=== PATIENT | male | born 1945 | race Caucasian/White ===

== ENCOUNTER 2017-03-22 08:29 | Observation (INO) | payer MEDICARE, OTHER ==
[~2017-03-22] VITALS: Ht 162.6 cm; Wt 93.1 kg
[~2017-03-22 08:29] MED LIST: ALLOPURINOL300 MG PO; ASPIRIN 81M81 MG/TA2 PO; CLONAZEPAM1 MG PO; CRESTOR5 MG PO; HUMALOG100 U/ML SC; LANTUS SOLOS100 U/ML SL; LISINOPRIL10 MG PO; METFORMIN ER500 MG PO; METOPROLOL50 MG PO; MICARDIS80 MG PO; NEURONTIN300 MG/CAP PO; PLAVIX 75MG TAB75 MG PO; SIMVASTATIN40 MG PO
[2017-03-22 08:59] VITALS: BP 136/61; PULSE 57; TEMP 97.7
[2017-03-22 09:23] LABS: HEMATOCRIT 32.2 % (42.0-52.0); MEAN CELL VOLUME 97 fl (80.0-100.0); MEAN CORPUSCULAR HEMOGLOBIN 30 pg (27.0-31.0); MEAN CORPUSCULAR HGB CONC 31 g/dl (33.0-37.0); MEAN PLATELET VOLUME 12.3 fl (7.4-10.4); PLATELET COUNT 60 K/mm3 (130-400); RED BLOOD COUNT 3.31 M/mm3 (4.20-5.60); REDCELL DISTRIBUTION WIDTH-CV 13.7 % (11.5-14.5); WHITE BLOOD COUNT 5.2 K/mm3 (4.8-10.8)
[2017-03-22 09:34] LABS: INR 1.2 (0.8-3.0); PROTHROMBIN TIME 13.1 SECONDS (9.7-12.8)
[2017-03-22] MEDS ORDERED: FLOMAX 0.40.4 MG/CAP PO (09:34)
[2017-03-22] MEDS ORDERED: IMDUR 60MG60 MG/TAB PO (09:35)
[2017-03-22] MEDS ORDERED: TOPROL XL 50MG50 MG PO (09:36)
[2017-03-22] MEDS ORDERED: PRINIVIL10 MG PO (09:36)
[2017-03-22] MEDS ORDERED: SYNTHROID 0.0.025 MG PO (09:38)
[2017-03-22] MEDS ORDERED: NATURAL MAGNES200 MG PO (09:39)
[2017-03-22] MEDS ORDERED: IRON 27 MG PO (09:39)
[2017-03-22] MEDS ORDERED: EPA FISH OIL1 SGL PO (09:40)
[2017-03-22] MEDS ORDERED: VITAMIN C500 MG PO (09:40)
[2017-03-22] MEDS ORDERED: ZOCOR 40MG40 MG PO (09:41)
[2017-03-22 09:45] LABS: CALCIUM 8.7 mg/dL (8.4-10.2); CREATININE, serum 2.04 mg/dL (0.66-1.25)
[2017-03-22 09:57] LABS: POTASSIUM 5.9 mmol/L (3.4-5.0)
[2017-03-22 12:15] VITALS: BP 120/57; PULSE 50; TEMP 98.7
[2017-03-22 14:37] LABS: POTASSIUM 5.3 mmol/L (3.4-5.0)
[2017-03-22 16:04] LABS: ARTERIAL BLD GAS O2 SATURATION 92.4 % (92-100); ARTERIAL BLD GAS TCO2 CT 23.3; ARTERIAL BLOOD GAS BASE EXCESS -3.3 (-2-2); ARTERIAL BLOOD GAS PHT 7.35 C (7.35-7.45); ARTERIAL BLOOD GAS PO2 68.8 mmHg (80-100); ARTERIAL BLOOD GAS PO2T 68.8 (80-100); ARTERIAL BLOOD GAS pH 7.35 (7.35-7.45); OXYHEMOGLOBIN 91.8 %
[2017-03-22 16:05] LABS: ATS? YES
[2017-03-22 19:03] LABS: CALCIUM 8.9 mg/dL (8.4-10.2); CREATININE, serum 2.06 mg/dL (0.66-1.25); MAGNESIUM 1.5 mg/dL (1.6-2.3)
[2017-03-22 20:38] VITALS: BP 173/58; PULSE 58; TEMP 98
[2017-03-22 22:50] VITALS: BP 148/60; PULSE 57; TEMP 97.8
[2017-03-22 23:05] LABS: PH 5 (5-8); SQUAMOUS EPITHELIAL 0-2 /hpf; URINE APPEARANCE Clear; URINE BACTERIA None Seen /hpf; URINE BILIRUBIN Negative (NEGATIVE); URINE BLOOD 1+ (NEGATIVE); URINE COLOR Yellow; URINE GLUCOSE 1+ (NEGATIVE); URINE KETONE Negative (NEGATIVE); URINE RBC 0-2 /hpf; URINE UROBILINOGEN Negative (NEGATIVE); URINE WBC 0-2 /hpf
[2017-03-22 23:32] LABS: URINE PROTEIN:CREAT RATIO 5.1 (0.00-0.14)
[2017-03-22 23:48] LABS: ALBUMIN 3.1 gm/dL (3.5-5.0); CALCIUM 8.3 mg/dL (8.4-10.2); CREATININE, serum 1.87 mg/dL (0.66-1.25); PHOSPHOROUS 4.8 mg/dL (2.5-4.5)
[2017-03-23 04:09] VITALS: BP 115/56; PULSE 56; TEMP 97.8
[2017-03-23 08:06] VITALS: BP 158/55; PULSE 66; TEMP 98.3
[2017-03-23 08:08] LABS: BASO % 0.2 % (0.0-2.0); EOS # 0.2 (0.0-0.7); EOS % 2.8 % (0-4.0); GRAN # 3.6 (1.4-6.5); GRAN % 67.8 % (42.2-75.2); LYMPH # 1.3 (1.2-3.4); LYMPH % 24.4 % (20.0-51.0); MEAN CELL VOLUME 99 fl (80.0-100.0); MEAN CORPUSCULAR HGB CONC 30 g/dl (33.0-37.0); MEAN PLATELET VOLUME 13.3 fl (7.4-10.4); MONO # 0.2 (0.1-0.6); MONO % 4.2 % (1.7-9.3); PLATELET COUNT 59 K/mm3 (130-400); RED BLOOD COUNT 3.06 M/mm3 (4.20-5.60); REDCELL DISTRIBUTION WIDTH-CV 14.1 % (11.5-14.5); WHITE BLOOD COUNT 5.3 K/mm3 (4.8-10.8)
[2017-03-23 08:10] LABS: HEMATOCRIT 30.3 % (42.0-52.0); HEMOGLOBIN 9.2 g/dl (13.5-18.0); MEAN CORPUSCULAR HEMOGLOBIN 30 pg (27.0-31.0)
[2017-03-23 08:21] LABS: CALCIUM 8.4 mg/dL (8.4-10.2); CREATININE, serum 1.92 mg/dL (0.66-1.25); MAGNESIUM 1.5 mg/dL (1.6-2.3); POTASSIUM 5.5 mmol/L (3.4-5.0)
[2017-03-23 11:50] VITALS: BP 167/63; PULSE 60; TEMP 98.4
[2017-03-23] MEDS ORDERED: IMDUR 30MG30 MG/TAB PO (15:38)
[2017-03-23] MEDS ORDERED: KAYEXALATE15 GM/60 M PO (15:40)
[2017-03-23 16:09] VITALS: BP 124/60; PULSE 57; TEMP 97.4
[2017-03-23 18:11] LABS: HOURS RANDOM Hr (()); VOLUME RANDOM mL (())
[2017-03-26 13:36] LABS: ERYTHROPOIETIN 21.4 mIU/mL (())
[2017-03-26 15:06] LABS: ALBUMIN PERCENTAGE 51.3 % (48.7-61.8); ALPHA 1 FRACTION 0.3 g/dL (0.3-0.5); ALPHA 1 PERCENTAGE 4.8 % (3.4-8.3); ALPHA 2 FRACTION 0.6 g/dL (0.6-1.2); ALPHA 2 PERCENTAGE 10.6 % (8.4-17.5); BETA 1 FRACTION 0.4 g/dL (0.4-0.6); BETA 1 PERCENTAGE 7.1 % (5.4-8.9); BETA 2 FRACTION 0.5 g/dL (0.2-0.5); BETA 2 PERCENTAGE 9.1 % (3.8-7.7); GAMMA PERCENTAGE 17.1 % (8.1-23.0); SERUM PROTEIN TOTAL 5.9 g/dL (6.0-7.6)
[2017-03-26 15:12] LABS: URINE ALPHA 1 % 2.4 % (()); URINE ALPHA 2 % 2.9 % (()); URINE BETA % 9.7 % (())
[2017-03-26 16:44] LABS: KAPPA FREE LIGHT CHAIN-SERUM 6.87 mg/dL (()); KAPPA LAMBDA RATIO 1.19 (())
== END 2017-03-23 17:53 | disposition home or self-care (01) ==
LOC: EUO 08:29 → COL.CAR 08:40 → EUO 08:40 → MEDICAL 11:13
PROVIDERS: Internal Medicine Cardiovascular Disease; Internal Medicine Nephrology
DX: I25.10 Atherosclerotic heart disease of native coronary artery without angina pectoris (principal); I12.9 Hypertensive chronic kidney disease with stage 1 through stage 4 chronic kidney disease, or unspecified chronic kidney disease; E11.22 Type 2 diabetes mellitus with diabetic chronic kidney disease; N18.9 Chronic kidney disease, unspecified; E87.5 Hyperkalemia; E78.5 Hyperlipidemia, unspecified; E03.9 Hypothyroidism, unspecified; D69.6 Thrombocytopenia, unspecified; R91.1 Solitary pulmonary nodule; E11.40 Type 2 diabetes mellitus with diabetic neuropathy, unspecified; K76.0 Fatty (change of) liver, not elsewhere classified; F17.220 Nicotine dependence, chewing tobacco, uncomplicated; E83.42 Hypomagnesemia; K52.9 Noninfective gastroenteritis and colitis, unspecified; I08.3 Combined rheumatic disorders of mitral, aortic and tricuspid valves; G47.33 Obstructive sleep apnea (adult) (pediatric); R56.9 Unspecified convulsions; Z90.49 Acquired absence of other specified parts of digestive tract; Z95.1 Presence of aortocoronary bypass graft; Z79.4 Long term (current) use of insulin; Z85.038 Personal history of other malignant neoplasm of large intestine; Z86.73 Personal history of transient ischemic attack (TIA), and cerebral infarction without residual deficits; Z82.49 Family history of ischemic heart disease and other diseases of the circulatory system
CPT/HCPCS: 99204; G0378; G0379; J0610; J1815; J1940; J3475; J7050

== ENCOUNTER 2017-03-29 06:03 | Day surgery (SDC) | payer MEDICARE ==
[~2017-03-29] VITALS: Ht 160 cm; Wt 93.6 kg
[2017-03-29] VITALS (15 sets, daily range): BP systolic 129–171; BP diastolic 48–85; PULSE 46–64; TEMP 97.3–98.8
[~2017-03-29 06:03] MED LIST changes: -ALLOPURINOL300 MG PO; +EPA FISH OIL1 SGL PO; +FERROUSGLUC256MG PO; +FLOMAX 0.40.4 MG/CAP PO; -HUMALOG100 U/ML SC; +HUMALOG100 U/ML SQ; +IMDUR 30MG30 MG/TAB PO; +IMDUR 60MG60 MG/TAB PO; +KAYEXALATE15 GM/60 M PO; -LANTUS SOLOS100 U/ML SL; +LANTUS SOLOS100 U/ML SQ; +NATURAL MAGNES200 MG PO; +PRINIVIL10 MG PO; -SIMVASTATIN40 MG PO; +SYNTHROID 0.0.025 MG PO; +TOPROL XL 50MG50 MG PO; +VITAMIN C500 MG PO; +ZOCOR 40MG40 MG PO; +ZYLOPRIM 300MG300 MG PO
[2017-03-29 06:52] LABS: MEAN CELL VOLUME 97 fl (80.0-100.0); MEAN CORPUSCULAR HGB CONC 32 g/dl (33.0-37.0); MEAN PLATELET VOLUME 12.7 fl (7.4-10.4); PLATELET COUNT 62 K/mm3 (130-400); RED BLOOD COUNT 3.34 M/mm3 (4.20-5.60); REDCELL DISTRIBUTION WIDTH-CV 13.9 % (11.5-14.5); WHITE BLOOD COUNT 5.9 K/mm3 (4.8-10.8)
[2017-03-29 06:53] LABS: HEMATOCRIT 32.3 % (42.0-52.0); HEMOGLOBIN 10.3 g/dl (13.5-18.0); MEAN CORPUSCULAR HEMOGLOBIN 31 pg (27.0-31.0)
[2017-03-29 07:02] LABS: CALCIUM 8.4 mg/dL (8.4-10.2); CREATININE, serum 2.31 mg/dL (0.66-1.25); POTASSIUM 5.1 mmol/L (3.4-5.0)
[2017-03-29 07:05] LABS: INR 1.2 (0.8-3.0); PROTHROMBIN TIME 12.8 SECONDS (9.7-12.8)
[2017-03-29] MEDS ORDERED: SYNTHROID 0.0.025 MG PO (08:43)
[2017-03-29] MEDS ORDERED: IMDUR 30MG30 MG/TAB PO (08:43)
[2017-03-29] MEDS ORDERED: TOPROL XL 50MG50 MG PO (08:45)
[2017-03-29] MEDS ORDERED: KAYEXALATE15 GM/60 M PO (08:50)
[2017-03-29] MEDS ORDERED: FLOMAX 0.40.4 MG/CAP PO (08:50)
[2017-03-30 04:28] VITALS: BP 146/60; PULSE 55; TEMP 98.4
[2017-03-30 05:34] VITALS: BP 146/60; PULSE 55; TEMP 98.4
[2017-03-30 07:18] VITALS: BP 137/45; PULSE 53; TEMP 97.5
[2017-03-30 08:52] LABS: BASO % 0.4 % (0.0-2.0); EOS # 0.2 (0.0-0.7); EOS % 3.3 % (0-4.0); GRAN # 3.7 (1.4-6.5); GRAN % 66.6 % (42.2-75.2); LYMPH # 1.3 (1.2-3.4); LYMPH % 24.4 % (20.0-51.0); MEAN CELL VOLUME 98 fl (80.0-100.0); MEAN CORPUSCULAR HGB CONC 31 g/dl (33.0-37.0); MEAN PLATELET VOLUME 13.4 fl (7.4-10.4); MONO # 0.3 (0.1-0.6); MONO % 4.9 % (1.7-9.3); PLATELET COUNT 57 K/mm3 (130-400); RED BLOOD COUNT 3.35 M/mm3 (4.20-5.60); REDCELL DISTRIBUTION WIDTH-CV 13.8 % (11.5-14.5); WHITE BLOOD COUNT 5.5 K/mm3 (4.8-10.8)
[2017-03-30 09:00] LABS: HEMATOCRIT 32.9 % (42.0-52.0); HEMOGLOBIN 10.2 g/dl (13.5-18.0); MEAN CORPUSCULAR HEMOGLOBIN 30 pg (27.0-31.0)
[2017-03-30 09:05] VITALS: BP 137/45; PULSE 53; TEMP 97.5
[2017-03-30 09:13] LABS: CALCIUM 8.3 mg/dL (8.4-10.2); CREATININE, serum 2.05 mg/dL (0.66-1.25); MAGNESIUM 1.6 mg/dL (1.6-2.3); POTASSIUM 4.9 mmol/L (3.4-5.0)
[2017-03-30] MEDS ORDERED: LANTUS SOLOS100 U/ML SQ (09:50)
[2017-03-30 10:48] VITALS: BP 154/57; PULSE 55; TEMP 98.1
[2017-03-30] MEDS ORDERED: NORVASC2.5 MG PO (11:47)
[2017-03-30] MEDS ORDERED: NITROSTAT0.4 MG/TAB SL (11:48)
[2017-03-30 12:23] VITALS: BP 154/57; PULSE 55; TEMP 98.1
== END 2017-03-30 12:25 | disposition home or self-care (01) ==
LOC: COL.CAR 06:03 → MEDICAL 13:14 → COL.CAR 03-30 12:25
PROVIDERS: Internal Medicine Cardiovascular Disease
DX: E87.5 Hyperkalemia (principal); I25.110 Atherosclerotic heart disease of native coronary artery with unstable angina pectoris; E78.5 Hyperlipidemia, unspecified; I12.9 Hypertensive chronic kidney disease with stage 1 through stage 4 chronic kidney disease, or unspecified chronic kidney disease; N18.9 Chronic kidney disease, unspecified; E11.22 Type 2 diabetes mellitus with diabetic chronic kidney disease; E03.9 Hypothyroidism, unspecified; D69.6 Thrombocytopenia, unspecified; E11.40 Type 2 diabetes mellitus with diabetic neuropathy, unspecified; I10 Essential (primary) hypertension; G47.33 Obstructive sleep apnea (adult) (pediatric); Z79.4 Long term (current) use of insulin; Z95.1 Presence of aortocoronary bypass graft; R56.9 Unspecified convulsions; Z87.891 Personal history of nicotine dependence; Z85.038 Personal history of other malignant neoplasm of large intestine; Z86.73 Personal history of transient ischemic attack (TIA), and cerebral infarction without residual deficits; Z82.49 Family history of ischemic heart disease and other diseases of the circulatory system
CPT/HCPCS: OP; 99203; 99231-AI; C1760; C1769; C1894; J1815; J2250; J3010; J7030; Q9967

== ENCOUNTER → 2017-04-19 | Outpatient (CLI) | payer MEDICARE ==
[~2017-04-19] MED LIST changes: +NITROSTAT0.4 MG/TAB SL; +NORVASC2.5 MG PO
== END ==
LOC: COL.PUL 12:29
DX: R06.02 Shortness of breath (principal); Z87.891 Personal history of nicotine dependence

== ENCOUNTER 2017-05-11 15:17 | Inpatient (IN) | payer MEDICARE ==
[~2017-05-11] VITALS: Ht 160 cm; Wt 89.9 kg
[2017-05-11] VITALS (297 sets, daily range): BP systolic 131–162; BP diastolic 81–92; PULSE 76–93; TEMP 98.3–98.7; O2SAT 85–100
[2017-05-11] MEDS ORDERED: LASIX 40MG TABL40 MG PO (15:42)
[2017-05-11 15:53] LABS: BASO % 0.3 % (0.0-2.0); EOS # 0.2 (0.0-0.7); GRAN # 4.1 (1.4-6.5); GRAN % 67.7 % (42.2-75.2); LYMPH # 1.4 (1.2-3.4); MEAN CELL VOLUME 93 fl (80.0-100.0); MEAN CORPUSCULAR HGB CONC 32 g/dl (33.0-37.0); MEAN PLATELET VOLUME 12.5 fl (7.4-10.4); MONO # 0.4 (0.1-0.6); MONO % 5.8 % (1.7-9.3); PLATELET COUNT 59 K/mm3 (130-400); RED BLOOD COUNT 3.35 M/mm3 (4.20-5.60)
[2017-05-11 15:54] LABS: HEMATOCRIT 31.2 % (42.0-52.0); HEMOGLOBIN 10.1 g/dl (13.5-18.0); MEAN CORPUSCULAR HEMOGLOBIN 30 pg (27.0-31.0)
[2017-05-11 15:55] LABS: INR 1.2 (0.8-3.0); PROTHROMBIN TIME 12.8 SECONDS (9.7-12.8)
[2017-05-11 15:57] LABS: PARTIAL THROMBOPLASTIN TIME 30.5 SECONDS (26.0-37.0)
[2017-05-11 16:05] LABS: ALBUMIN 3.6 gm/dL (3.5-5.0); BILIRUBIN,TOTAL 0.7 mg/dL (0.0-1.0); CALCIUM 8.7 mg/dL (8.4-10.2); CREATININE, serum 2.55 mg/dL (0.66-1.25); POTASSIUM 4.4 mmol/L (3.4-5.0); TOTAL PROTEIN 6.8 gm/dL (6.4-8.2)
[2017-05-11 16:19] LABS: TROPONIN-I 0.298 ng/mL (0.000-0.034)
[2017-05-11] MEDS ORDERED: NORVASC2.5 MG PO (18:01)
[2017-05-11] MEDS ORDERED: LANTUS100 U/ML SQ (18:02)
[2017-05-12] VITALS (586 sets, daily range): BP systolic 106–148; BP diastolic 35–78; PULSE 67–81; TEMP 97.6–98.1; O2SAT 89–100
[2017-05-12 04:15] LABS: BASO % 0.4 % (0.0-2.0); EOS # 0.2 (0.0-0.7); EOS % 3.7 % (0-4.0); GRAN # 2.7 (1.4-6.5); GRAN % 58.7 % (42.2-75.2); LYMPH # 1.4 (1.2-3.4); LYMPH % 29.9 % (20.0-51.0); MEAN CELL VOLUME 95 fl (80.0-100.0); MEAN CORPUSCULAR HGB CONC 32 g/dl (33.0-37.0); MONO # 0.3 (0.1-0.6); MONO % 6.9 % (1.7-9.3); PLATELET COUNT 51 K/mm3 (130-400); RED BLOOD COUNT 3.14 M/mm3 (4.20-5.60); WHITE BLOOD COUNT 4.7 K/mm3 (4.8-10.8)
[2017-05-12 04:16] LABS: HEMATOCRIT 29.7 % (42.0-52.0); HEMOGLOBIN 9.5 g/dl (13.5-18.0); MEAN CORPUSCULAR HEMOGLOBIN 30 pg (27.0-31.0)
[2017-05-12 04:27] LABS: ALBUMIN 3.1 gm/dL (3.5-5.0); BILIRUBIN,TOTAL 0.7 mg/dL (0.0-1.0); CALCIUM 8.3 mg/dL (8.4-10.2); CREATININE, serum 2.38 mg/dL (0.66-1.25); POTASSIUM 4.7 mmol/L (3.4-5.0)
[2017-05-12 04:42] LABS: TROPONIN-I 3 HR POST INITIAL 0.479 ng/mL (0.000-0.034)
[2017-05-12 07:53] LABS: TROPONIN-I 6 HR POST INITIAL 0.442 ng/mL (0.000-0.034)
[2017-05-12 10:43] LABS: CHOLESTEROL RISK RATIO 4.2
[2017-05-13 00:02] VITALS: BP 110/54; PULSE 63; TEMP 98.8
[2017-05-13 04:11] VITALS: BP 128/56; PULSE 86; TEMP 98.2
[2017-05-13 08:25] VITALS: BP 120/68; PULSE 101; TEMP 98
[2017-05-13 11:38] LABS: MEAN CELL VOLUME 94 fl (80.0-100.0); MEAN CORPUSCULAR HGB CONC 32 g/dl (33.0-37.0); MEAN PLATELET VOLUME 12.9 fl (7.4-10.4); PLATELET COUNT 54 K/mm3 (130-400); RED BLOOD COUNT 3.09 M/mm3 (4.20-5.60); WHITE BLOOD COUNT 4.2 K/mm3 (4.8-10.8)
[2017-05-13 11:39] VITALS: BP 127/57; PULSE 58; TEMP 97.6
[2017-05-13 11:40] LABS: HEMATOCRIT 29.1 % (42.0-52.0); HEMOGLOBIN 9.3 g/dl (13.5-18.0); MEAN CORPUSCULAR HEMOGLOBIN 30 pg (27.0-31.0)
[2017-05-13 11:59] LABS: CALCIUM 8.3 mg/dL (8.4-10.2); CREATININE, serum 2.45 mg/dL (0.66-1.25); POTASSIUM 5.7 mmol/L (3.4-5.0)
[2017-05-13] MEDS ORDERED: IMDUR 30MG30 MG/TAB PO (15:31)
[2017-05-13] MEDS ORDERED: TOPROL XL 50MG50 MG PO (15:32)
[2017-05-13] MEDS ORDERED: NORVASC 5MG5 MG/TAB PO (15:32)
[2017-05-13] MEDS ORDERED: NEURONTIN100 MG/CAP PO (15:33)
[2017-05-13] MEDS ORDERED: ZYLOPRIM 100MG100 MG PO (15:34)
== END 2017-05-13 16:18 | disposition home or self-care (01) | DRG 281 ==
LOC: COL.ER 15:17 → ICU 16:33 → MEDICAL 05-12 14:50 → ICU 05-12 14:50 → MEDICAL 05-13 16:18
PROVIDERS: Emergency Medicine; Family Medicine; Internal Medicine
DX: I21.A1 Myocardial infarction type 2 (principal); N18.4 Chronic kidney disease, stage 4 (severe); D61.818 Other pancytopenia; I12.9 Hypertensive chronic kidney disease with stage 1 through stage 4 chronic kidney disease, or unspecified chronic kidney disease; G47.33 Obstructive sleep apnea (adult) (pediatric); E11.22 Type 2 diabetes mellitus with diabetic chronic kidney disease; E03.9 Hypothyroidism, unspecified; D63.1 Anemia in chronic kidney disease; R00.2 Palpitations; Z87.891 Personal history of nicotine dependence; E87.5 Hyperkalemia; K74.60 Unspecified cirrhosis of liver; Z79.4 Long term (current) use of insulin; Z85.038 Personal history of other malignant neoplasm of large intestine
CPT/HCPCS: 99223-AI; 99233-AI; 99239; J1650; J1815

== ENCOUNTER → 2017-05-15 | Outpatient (CLI) | payer MEDICARE ==
[~2017-05-15] MED LIST changes: +LANTUS100 U/ML SQ; +LASIX 40MG TABL40 MG PO; +NEURONTIN100 MG/CAP PO; +NORVASC 5MG5 MG/TAB PO; +ZYLOPRIM 100MG100 MG PO
[2017-05-15 13:11] LABS: CALCIUM 8.7 mg/dL (8.4-10.2); CREATININE, serum 2.35 mg/dL (0.66-1.25); POTASSIUM 4.6 mmol/L (3.4-5.0)
== END ==
LOC: COL.LAB 12:48
PROVIDERS: Internal Medicine
DX: E87.5 Hyperkalemia (principal)

== ENCOUNTER → 2017-06-05 | Outpatient (CLI) | payer MEDICARE ==
[2017-06-05] VITALS (11 sets, daily range): BP systolic 132–160; BP diastolic 67–85; PULSE 54–64
[~2017-06-05] VITALS: Ht 160 cm; Wt 94.3 kg
[2017-06-05 12:22] LABS: INR 1.2 (0.8-3.0); PROTHROMBIN TIME 13.4 SECONDS (9.7-12.8)
== END ==
LOC: COL.RAD 11:32
PROVIDERS: Physician Assistant
DX: K74.60 Unspecified cirrhosis of liver (principal); N18.3 Chronic kidney disease, stage 3 (moderate); D69.6 Thrombocytopenia, unspecified
CPT/HCPCS: 25757

== ENCOUNTER → 2017-07-13 | Outpatient (CLI) | payer MEDICARE | LOC: COL.LAB 14:37 | DX: R05 Cough (principal); R06.02 Shortness of breath; Z95.1 Presence of aortocoronary bypass graft ==

== ENCOUNTER → 2017-08-21 | Outpatient (CLI) | payer MEDICARE | LOC: COL.PUL 10:31 | DX: R06.02 Shortness of breath (principal) | CPT/HCPCS: J7674 ==

== ENCOUNTER → 2017-12-24 | Outpatient (CLI) | payer MEDICARE | LOC: COL.VAS 08:44 | DX: I65.21 Occlusion and stenosis of right carotid artery (principal); N18.4 Chronic kidney disease, stage 4 (severe) | CPT/HCPCS: G0365 ==

== ENCOUNTER 2018-01-30 09:55 | Day surgery (SDC) | payer MEDICARE ==
[~2018-01-30] VITALS: Ht 160 cm; Wt 90.3 kg
[2018-01-30] MEDS ORDERED: PLAVIX 75MG TAB75 MG PO (10:41)
[2018-01-30] MEDS ORDERED: QUESTRAN4 GM/9 GM PO (10:41)
[2018-01-30] MEDS ORDERED: LASIX 20MG TABL20 MG PO (10:43)
[2018-01-30] MEDS ORDERED: NEURONTIN300 MG/CAP PO (10:44)
[2018-01-30] MEDS ORDERED: LEVEMIR FLEX100 U/ML SQ (10:46)
[2018-01-30] MEDS ORDERED: FLOMAX 0.40.4 MG/CAP PO (10:48)
[2018-01-30] MEDS ORDERED: TOPROL XL100 MG PO (10:48)
[2018-01-30 11:18] VITALS: BP 159/59; PULSE 68; TEMP 97.6
[2018-01-30 14:59] VITALS: BP 120/61; PULSE 68; TEMP 97.1
[2018-01-30 15:14] VITALS: BP 117/66; PULSE 59
[2018-01-30 15:29] VITALS: BP 124/56; PULSE 60
[2018-01-30] MEDS ORDERED: NORCO 325 MG-51 TAB PO (15:41)
[2018-01-30 15:44] VITALS: BP 115/75; PULSE 59
[2018-01-30 16:14] VITALS: BP 147/63; PULSE 59
== END 2018-01-30 16:35 | disposition home or self-care (01) ==
LOC: SDCO 09:55
DX: I12.9 Hypertensive chronic kidney disease with stage 1 through stage 4 chronic kidney disease, or unspecified chronic kidney disease (principal); E11.22 Type 2 diabetes mellitus with diabetic chronic kidney disease; N18.4 Chronic kidney disease, stage 4 (severe); N17.9 Acute kidney failure, unspecified; K74.60 Unspecified cirrhosis of liver; I10 Essential (primary) hypertension; I25.2 Old myocardial infarction; I25.119 Atherosclerotic heart disease of native coronary artery with unspecified angina pectoris; J44.9 Chronic obstructive pulmonary disease, unspecified; G47.33 Obstructive sleep apnea (adult) (pediatric); K21.9 Gastro-esophageal reflux disease without esophagitis; M19.90 Unspecified osteoarthritis, unspecified site; I69.992 Facial weakness following unspecified cerebrovascular disease; D64.9 Anemia, unspecified; E78.00 Pure hypercholesterolemia, unspecified; E03.9 Hypothyroidism, unspecified; N40.0 Benign prostatic hyperplasia without lower urinary tract symptoms; Z95.2 Presence of prosthetic heart valve; Z95.0 Presence of cardiac pacemaker; Z79.02 Long term (current) use of antithrombotics/antiplatelets; Z79.82 Long term (current) use of aspirin; Z88.0 Allergy status to penicillin; Z85.038 Personal history of other malignant neoplasm of large intestine; Z83.3 Family history of diabetes mellitus; Z80.0 Family history of malignant neoplasm of digestive organs
CPT/HCPCS: J1644; J1815; J2704; J7030

== ENCOUNTER 2018-02-21 08:09 | Day surgery (SDC) | payer MEDICARE ==
[~2018-02-21] VITALS: Ht 160 cm; Wt 88.1 kg
[~2018-02-21 08:09] MED LIST changes: +LASIX 20MG TABL20 MG PO; +LEVEMIR FLEX100 U/ML SQ; +NORCO 325 MG-51 TAB PO; +QUESTRAN4 GM/9 GM PO; +TOPROL XL100 MG PO
[2018-02-21] MEDS ORDERED: LASIX 40MG TABL40 MG PO ×2 (08:47→08:48)
[2018-02-21] MEDS ORDERED: NEURONTIN300 MG/CAP PO (08:49)
[2018-02-21] MEDS ORDERED: LEVEMIR FLEX100 U/ML SQ (08:50)
[2018-02-21] MEDS ORDERED: ZAROXOLYN 2.52.5 MG PO (08:50)
[2018-02-21 08:54] VITALS: BP 119/58; PULSE 63; TEMP 98
[2018-02-21 09:17] LABS: BASO % 0.4 % (0.0-2.0); EOS # 0.2 (0.0-0.7); EOS % 2.9 % (0-4.0); GRAN # 5.6 (1.4-6.5); GRAN % 73.3 % (42.2-75.2); LYMPH # 1.3 (1.2-3.4); LYMPH % 16.9 % (20.0-51.0); MEAN CELL VOLUME 86 fl (80.0-100.0); MEAN CORPUSCULAR HGB CONC 32 g/dl (33.0-37.0); MEAN PLATELET VOLUME 11.3 fl (7.4-10.4); MONO # 0.4 (0.1-0.6); MONO % 5.7 % (1.7-9.3); PLATELET COUNT 106 K/mm3 (130-400); RED BLOOD COUNT 3.57 M/mm3 (4.20-5.60); REDCELL DISTRIBUTION WIDTH-CV 15.6 % (11.5-14.5)
[2018-02-21 09:20] LABS: HEMATOCRIT 30.7 % (42.0-52.0); HEMOGLOBIN 9.8 g/dl (13.5-18.0); MEAN CORPUSCULAR HEMOGLOBIN 27 pg (27.0-31.0)
== END 2018-02-21 12:09 | disposition home or self-care (01) ==
LOC: SDCO 08:09
PROVIDERS: Surgery
DX: I12.9 Hypertensive chronic kidney disease with stage 1 through stage 4 chronic kidney disease, or unspecified chronic kidney disease (principal); E11.22 Type 2 diabetes mellitus with diabetic chronic kidney disease; N18.4 Chronic kidney disease, stage 4 (severe); E78.00 Pure hypercholesterolemia, unspecified; G47.00 Insomnia, unspecified; E03.9 Hypothyroidism, unspecified; N40.1 Benign prostatic hyperplasia with lower urinary tract symptoms; K74.60 Unspecified cirrhosis of liver; J43.9 Emphysema, unspecified; I25.119 Atherosclerotic heart disease of native coronary artery with unspecified angina pectoris; I25.2 Old myocardial infarction; R05 Cough; F41.9 Anxiety disorder, unspecified; M19.90 Unspecified osteoarthritis, unspecified site; Z95.1 Presence of aortocoronary bypass graft; Z79.02 Long term (current) use of antithrombotics/antiplatelets; Z79.4 Long term (current) use of insulin; Z99.2 Dependence on renal dialysis; Z90.49 Acquired absence of other specified parts of digestive tract; Z88.0 Allergy status to penicillin; Z88.1 Allergy status to other antibiotic agents; Z86.73 Personal history of transient ischemic attack (TIA), and cerebral infarction without residual deficits; Z85.038 Personal history of other malignant neoplasm of large intestine; Z83.3 Family history of diabetes mellitus; Z82.49 Family history of ischemic heart disease and other diseases of the circulatory system; Z80.0 Family history of malignant neoplasm of digestive organs; Z53.8 Procedure and treatment not carried out for other reasons
CPT/HCPCS: J2250; J2704; J7030

== ENCOUNTER 2018-03-21 06:14 | Day surgery (SDC) | payer MEDICARE ==
[~2018-03-21] VITALS: Ht 162.6 cm; Wt 90.1 kg
[~2018-03-21 06:14] MED LIST changes: +ZAROXOLYN 2.52.5 MG PO
[2018-03-21 06:51] VITALS: BP 154/61; PULSE 67; TEMP 97.9
[2018-03-21 07:23] LABS: CALCIUM 8.2 mg/dL (8.4-10.2); CREATININE, serum 2.62 mg/dL (0.66-1.25); POTASSIUM 4.6 mmol/L (3.4-5.0)
[2018-03-21 09:59] VITALS: BP 112/50; PULSE 61
[2018-03-21 10:14] VITALS: BP 116/43; PULSE 60
[2018-03-21 10:29] VITALS: BP 113/54; PULSE 59
[2018-03-21 10:44] VITALS: BP 115/46; PULSE 60
== END 2018-03-21 11:40 | disposition home or self-care (01) ==
LOC: SDCO 06:14
PROVIDERS: Surgery
DX: I12.0 Hypertensive chronic kidney disease with stage 5 chronic kidney disease or end stage renal disease (principal); E11.22 Type 2 diabetes mellitus with diabetic chronic kidney disease; N18.5 Chronic kidney disease, stage 5; E78.00 Pure hypercholesterolemia, unspecified; G47.30 Sleep apnea, unspecified; I25.10 Atherosclerotic heart disease of native coronary artery without angina pectoris; E03.9 Hypothyroidism, unspecified; N40.0 Benign prostatic hyperplasia without lower urinary tract symptoms; I25.2 Old myocardial infarction; J44.9 Chronic obstructive pulmonary disease, unspecified; R05 Cough; D63.1 Anemia in chronic kidney disease; I69.992 Facial weakness following unspecified cerebrovascular disease; R56.9 Unspecified convulsions; Z79.82 Long term (current) use of aspirin; Z79.4 Long term (current) use of insulin; Z95.1 Presence of aortocoronary bypass graft; Z95.0 Presence of cardiac pacemaker; Z88.0 Allergy status to penicillin; Z88.1 Allergy status to other antibiotic agents; Z87.891 Personal history of nicotine dependence; Z85.038 Personal history of other malignant neoplasm of large intestine; Z85.51 Personal history of malignant neoplasm of bladder
CPT/HCPCS: J0690; J1644; J2704; J3010; J7030

== ENCOUNTER 2018-03-27 10:44 | Day surgery (SDC) | payer MEDICARE ==
[~2018-03-27] VITALS: Ht 160 cm; Wt 91.1 kg
[2018-03-27 12:21] LABS: BASO % 0.6 % (0.0-2.0); EOS # 0.2 (0.0-0.7); GRAN # 3.1 (1.4-6.5); GRAN % 65.2 % (42.2-75.2); LYMPH # 1.1 (1.2-3.4); LYMPH % 22.9 % (20.0-51.0); MEAN CELL VOLUME 91 fl (80.0-100.0); MEAN CORPUSCULAR HGB CONC 32 g/dl (33.0-37.0); MEAN PLATELET VOLUME 11.2 fl (7.4-10.4); MONO # 0.3 (0.1-0.6); MONO % 7.1 % (1.7-9.3); PLATELET COUNT 71 K/mm3 (130-400); RED BLOOD COUNT 3.44 M/mm3 (4.20-5.60); REDCELL DISTRIBUTION WIDTH-CV 17.2 % (11.5-14.5)
[2018-03-27 12:22] LABS: HEMATOCRIT 31.2 % (42.0-52.0); HEMOGLOBIN 9.9 g/dl (13.5-18.0); MEAN CORPUSCULAR HEMOGLOBIN 29 pg (27.0-31.0)
[2018-03-27 12:47] VITALS: BP 149/70; PULSE 80; TEMP 97.8
[2018-03-27 15:35] VITALS: BP 128/69; PULSE 69
[2018-03-27 15:50] VITALS: BP 150/58; PULSE 60; TEMP 97.2
[2018-03-27 16:05] VITALS: BP 145/65; PULSE 60
[2018-03-27 16:20] VITALS: BP 138/75; PULSE 81
[2018-03-27 16:50] VITALS: BP 141/73; PULSE 73
== END 2018-03-27 18:31 | disposition home or self-care (01) ==
LOC: SDCO 10:44 → SURG 15:33 → SDCO 18:31
PROVIDERS: Urology
DX: C67.9 Malignant neoplasm of bladder, unspecified (principal); N40.0 Benign prostatic hyperplasia without lower urinary tract symptoms; I25.10 Atherosclerotic heart disease of native coronary artery without angina pectoris; G47.33 Obstructive sleep apnea (adult) (pediatric); M10.9 Gout, unspecified; E78.5 Hyperlipidemia, unspecified; E03.9 Hypothyroidism, unspecified; I25.2 Old myocardial infarction; I35.1 Nonrheumatic aortic (valve) insufficiency; E11.42 Type 2 diabetes mellitus with diabetic polyneuropathy; I12.0 Hypertensive chronic kidney disease with stage 5 chronic kidney disease or end stage renal disease; E11.22 Type 2 diabetes mellitus with diabetic chronic kidney disease; N18.6 End stage renal disease; Z99.2 Dependence on renal dialysis; R80.9 Proteinuria, unspecified; G25.81 Restless legs syndrome; D69.6 Thrombocytopenia, unspecified; E66.9 Obesity, unspecified; Z68.34 Body mass index [BMI] 34.0-34.9, adult; Z79.82 Long term (current) use of aspirin; Z79.4 Long term (current) use of insulin; Z88.0 Allergy status to penicillin; Z88.1 Allergy status to other antibiotic agents; Z86.73 Personal history of transient ischemic attack (TIA), and cerebral infarction without residual deficits; Z87.891 Personal history of nicotine dependence
CPT/HCPCS: OP; J0690; J1100; J2405; J2704; J3010; J7030

== ENCOUNTER 2018-07-18 13:50 | Inpatient (IN) | payer MEDICARE ==
[~2018-07-18] VITALS: Ht 160 cm; Wt 86.3 kg
[2018-07-18] VITALS (7 sets, daily range): BP systolic 157–171; BP diastolic 56–70; PULSE 64–97; TEMP 97.5–98.4
[2018-07-18] MEDS ORDERED: FOLIC ACID 11 MG/TA1 PO (14:24)
[2018-07-18 14:25] LABS: BASO % 0.4 % (0.0-2.0); EOS # 0.2 (0.0-0.7); EOS % 3.2 % (0-4.0); GRAN # 5.1 (1.4-6.5); GRAN % 69.6 % (42.2-75.2); HEMOGLOBIN 11.9 g/dl (13.5-18.0); LYMPH # 1.5 (1.2-3.4); LYMPH % 21.1 % (20.0-51.0); MEAN CELL VOLUME 90 fl (80.0-100.0); MEAN CORPUSCULAR HEMOGLOBIN 30 pg (27.0-31.0); MEAN CORPUSCULAR HGB CONC 33 g/dl (33.0-37.0); MEAN PLATELET VOLUME 11.5 fl (7.4-10.4); MONO # 0.4 (0.1-0.6); MONO % 5.3 % (1.7-9.3); PLATELET COUNT 78 K/mm3 (130-400); RED BLOOD COUNT 3.97 M/mm3 (4.20-5.60); REDCELL DISTRIBUTION WIDTH-CV 14.3 % (11.5-14.5)
[2018-07-18] MEDS ORDERED: VITAMIN B12 781 TAB PO (14:25)
[2018-07-18 14:27] LABS: HEMATOCRIT 35.8 % (42.0-52.0)
[2018-07-18] MEDS ORDERED: TUMS EXTRA STR750 MG PO (14:27)
--- NOTE | 2018-07-18 14:30 | NUR ---
Pt arrived from [place]. Pt independent and has spouse present. Pt admission completed and med reconcilation completed. Pt IV started in left AC and patent. Pt to have dialysis catheter placed today. Dr. Wade will enter more orders this evening. Pt oriented to room and has call light in reach. Pt right arm restricted and arm band placed.
[2018-07-18 14:31] LABS: INR 1.1 (0.8-3.0); PROTHROMBIN TIME 12.3 SECONDS (9.7-12.8)
[2018-07-18 14:33] LABS: ALBUMIN 3.3 gm/dL (3.5-5.0); BILIRUBIN,TOTAL 0.7 mg/dL (0.0-1.0); CALCIUM 8.4 mg/dL (8.4-10.2); CREATININE, serum 3.75 mg/dL (0.66-1.25); POTASSIUM 3.9 mmol/L (3.4-5.0); TOTAL PROTEIN 7.2 gm/dL (6.4-8.2)
--- NOTE | 2018-07-18 19:59 | NUR ---
Pt had dialysis cath inserted today and back to unit around 1700 in right IJ. Catheter drsg intact and scant amount of blood noted at top edge of drsg which was verified with roofing laborer nurse. Pt denies pain, SOB, or dizziness. Pt BP running high and Dr. Wade updated and NNO. Pt to have dialysis tomorrow am. Pt has FR 1500. Pt has call light in reach and denies needs at this time. Pt did ask about Humalog and Rigo RN will verify why not continued with Dr. Wade.
[2018-07-19 02:13] VITALS: BP 144/55; PULSE 66
--- NOTE | 2018-07-19 06:10 | NUR ---
Pt slept well during the night, no C/O pain, VS have been stable, family has been in the room with the Pt during the night.
[2018-07-19 07:24] VITALS: BP 147/65; PULSE 65; TEMP 97.5
--- NOTE | 2018-07-19 07:30 | NUR ---
The patient is sitting up in the bed waiting on breakfast. His is at the bedside. No pain or needs reported. The patient was educated on his fluid restriction and verbalized understanding.
[2018-07-19 11:43] VITALS: BP 146/67; PULSE 63; TEMP 97.8
--- NOTE | 2018-07-19 12:38 | NUR ---
No change throughout the morning. No pain or needs reported. The is at the bedside and the call light is in place.
--- NOTE | 2018-07-19 13:24 | NUR ---
Report received from REY Coffey.patient at dialysis at this time.
--- NOTE | 2018-07-19 14:46 | NUR ---
SW attempted to meet with patient however they were not in the room. Will attempt again later.
--- NOTE | 2018-07-19 15:57 | NUR ---
patient return to room from dialysis.pleasant and cooperative with cares.denies any needs at this time.call light in reach
[2018-07-19 16:00] VITALS: BP 170/76; PULSE 60; TEMP 98
--- NOTE | 2018-07-19 18:33 | NUR ---
PATIENT RESTING IN BED AT THIS TIME.PATIENT HAD AN UNEVENFUL DAY.DENIES ANY NEEDS AT THIS TIME.CALL LIGHT IN REACH
[2018-07-19 19:16] VITALS: BP 140/51; PULSE 71; TEMP 97.9
--- NOTE | 2018-07-19 21:10 | NUR ---
PT IN BED WITH HOB AT 45 DEGREE ANGLE, BY SIDE. PT DENIES PAIN OR DISCOMFORT. PT DISCUSSED GOING HOME TOMORROW AFTER DIALYSIS, ADVISED THAT DR. ROQUE SAID THAT HE WOULD BE ABLE TO GO HOME. PT HAS NO NEEDS AT THIS TIME, CALL LIGHT WITHIN REACH.
--- NOTE | 2018-07-19 21:40 | NUR ---
CALLED DR. ROQUE AND ADVISED OF BS AT 358 AND THAT PT IS EATING WELL. DR. ROQUE GAVE ORDERS TO RESUME INSULIN AT HOME.
[2018-07-19 23:24] LABS: HEPATITIS B CORE AB,TOTAL Negative (()); HEPATITIS B SURFACE ANTIBODY <2.0 (()); HEPATITIS B SURFACE ANTIGEN Negative (Negative)
[2018-07-20 00:23] VITALS: BP 155/58; PULSE 64; TEMP 98.2
[2018-07-20 04:24] VITALS: BP 126/53; PULSE 66; TEMP 97.8
--- NOTE | 2018-07-20 04:32 | NUR ---
PT HAS HAD AN UNEVENTFUL NIGHT. PT ASLEEP MOST OF THE NIGHT, WITH NO S/S OF PAIN OR DISCOMFORT AND RESP EVEN AND UNLABORED. CALL LIGHT WITHIN REACH AND IN RECLINER AT BEDSIDE.
[2018-07-20 07:33] VITALS: BP 180/64; PULSE 80; TEMP 97.7
--- NOTE | 2018-07-20 07:54 | NUR ---
Pt AAOx3. Sitting on side of bed eating breakfast with spouse. No complaints at this time,
[2018-07-20 09:33] LABS: ALBUMIN 2.8 gm/dL (3.5-5.0); CALCIUM 7.6 mg/dL (8.4-10.2); CREATININE, serum 3.36 mg/dL (0.66-1.25); PHOSPHOROUS 5.3 mg/dL (2.5-4.5); POTASSIUM 3.8 mmol/L (3.4-5.0)
[2018-07-20 11:44] VITALS: BP 185/73; PULSE 81; TEMP 97.4
--- NOTE | 2018-07-20 14:41 | NUR ---
Plan to return home with Gilma . Assess: Patient reports that he resides in [place] with spouse Patient reports taht his PCP is Dr. Peralta, Patient obtains RX at [facility] and uses [facility] everyday. Patient reports that he has a pacemaker monitor at home and a nueblizer. Patient and daughter have indicated that there care concerns are not receiving insulin on time. Patient reports that at home he takes it prior to each meal. No DC concerns. Action: SW educated patient of resources and notified nursing staff of care concerns. No additional needs identified.
[2018-07-20 17:11] VITALS: BP 166/71; PULSE 92; TEMP 98.2
[2018-07-20 19:12] VITALS: BP 154/68; PULSE 84; TEMP 98.1
--- NOTE | 2018-07-20 20:00 | NUR ---
PT IN BED WITH HOB ELEVATED TO 45 DEGREE ANGLE, DENIES PAIN OR DISCOMFORT. ALSO, PT ADVISED THAT HE IS NOT HAVING CHEST PAIN, ONLY HAD CHEST PAIN DOWN IN DIALYSIS WHEN BP WAS DROPPING, BUT AFTER THEY QUIET PULLING OFF FLUIDS THE CHEST PAIN WENT AWAY, AND HEAD DID NOT FEEL LIKE IN A TUNNEL. ALSO, DISCUSSED WITH PT THAT INSULIN WAS HELD BY DR. ROQUE AND WAS RESTARTED TODAY. NO NEEDS OR CONCERNS AT THIS TIME, CALL LIGHT WITHIN REACH.
--- NOTE | 2018-07-20 20:36 | NUR ---
PT IN BED, IN THE CHAIR POSITION, EATING SUPPER. PT DENIES PAIN OR DISCOMFORT AT THIS TIME. PT ADVISES THAT HE DOES NOT WANT TO USE THE BIPAP MACHINE AT ALL TONIGHT, RT IS AWARE. PT ON 5L/NC HIGH FLOW. PT'S BLE ARE +3 EDEMA WITH REDNESS AND NO WARM OR PAIN, ON LLE SKIN IS CRACKED AND SCALEY. PT HAS NO NEEDS AT THIS TIME CALL LIGHT WITHIN REACH.
[2018-07-21] VITALS (7 sets, daily range): BP systolic 92–179; BP diastolic 59–69; PULSE 72–105; TEMP 97.5–98.6
--- NOTE | 2018-07-21 05:08 | NUR ---
PT ADVISES THAT HE HAD SLEPT PART OF THE NIGHT, BUT WAS HAVING TROUBLE GOING BACK TO SLEEP. PT SITTING IN RECLINER. PT WAS GIVEN A SNACK OF JELLO AND ALSO GAVE ICE WATER. PT DENIES PAIN, BUT HAS C/O DRSG FROM NON-TUNNEL CATHETER. PT ADVISES THAT THE GLUE ON THE CLEAR DRSG IS CAUSING ITCHING AND DISCOMFORT. THE AREA TO THE DRSG OF THE RIGHT CHEST IS RED. PT WILL WAIT TILL MORNING WHEN HE GOES TO DIALYSIS TO LET THE DIALYSIS NURSE KNOW HE IS HAVING DISCOMFORT FROM THE GLUE. NO FURTHER NEEDS, CALL LIGHT WITHIN REACH.
--- NOTE | 2018-07-21 08:00 | NUR ---
Assessment complete. Pt sitting up in chair eating breakfast, A&O x 4. Breath sounds CTAB. BS active x 4. Pt reports generalized achiness. 1+ edema to bilat feet. Saline lock IV to left AC without s/s of complications. AV Fistula to right arm with strong thrill to palpation. POC reviewed with pt. No further needs reported. Call light in reach.
--- NOTE | 2018-07-21 09:30 | NUR ---
Pt to [facility] for dialysis via WC.
[2018-07-21 10:00] LABS: ALBUMIN 2.9 gm/dL (3.5-5.0); CALCIUM 7.8 mg/dL (8.4-10.2); CREATININE, serum 2.89 mg/dL (0.66-1.25); PHOSPHOROUS 4.1 mg/dL (2.5-4.5); POTASSIUM 3.7 mmol/L (3.4-5.0)
--- NOTE | 2018-07-21 12:05 | NUR ---
Pt back to room from dialysis via WC, reports continued headache, requesting PRN medication which is administered per orders. Lunch is ordered and on the way. No further needs reported. Call light in reach.
--- NOTE | 2018-07-21 14:00 | NUR ---
Pt ambulating in hallway with steady gait, no needs reported.
--- NOTE | 2018-07-21 17:37 | NUR ---
Pt sitting up in chair eating dinner. Sched Insulin administered per orders after discussing lower blood sugar with pt. Pt reports always using the same dose even with the lower blood sugar. No further needs reported. Call light in reach.
--- NOTE | 2018-07-21 20:10 | NUR ---
Shift assessment complete. Pt resting in bedside recliner, awake, a&o, cooperative c cares. Pt denies c/o at this time. INT patent. HD cath noted to R chest s complication. HD AVF noted to R upper arm, strong bruit/thrill. Pt denies needs. Call light in reach, will monitor.
[2018-07-22 04:08] VITALS: BP 165/61; PULSE 77; TEMP 98
[2018-07-22 07:53] VITALS: BP 157/57; PULSE 85; TEMP 97.6
--- NOTE | 2018-07-22 07:57 | NUR ---
Patient sitting up in recliner eating breakfast. No needs verbalized at this time. Call light is within reach.
--- NOTE | 2018-07-22 10:15 | NUR ---
Initial visit; Patient and thanked Dye Range Tender for visit and offering God's blessings.
[2018-07-22 11:02] VITALS: BP 152/65; PULSE 72; TEMP 97.9
--- NOTE | 2018-07-22 12:00 | NUR ---
Patient taken to dialysis via wc at this time.
[2018-07-22 12:59] LABS: CREATININE, serum 2.86 mg/dL (0.66-1.25); PHOSPHOROUS 4.1 mg/dL (2.5-4.5); POTASSIUM 4.2 mmol/L (3.4-5.0)
[2018-07-22 19:11] VITALS: BP 196/64; PULSE 85; TEMP 98.2
--- NOTE | 2018-07-22 20:59 | NUR ---
Pt in recliner resting and watching TV, no C/O pain. Shift assessments complete.
[2018-07-23 00:43] VITALS: BP 178/64; PULSE 81; TEMP 97.6
[2018-07-23 04:25] VITALS: BP 155/59; PULSE 82; TEMP 98.1
--- NOTE | 2018-07-23 05:31 | NUR ---
Pt slept well during the night, he has had no C/O pain during the night, VS have remained stable.
[2018-07-23 07:43] VITALS: BP 165/64; PULSE 96; TEMP 98.8
--- NOTE | 2018-07-23 09:05 | NUR ---
Assessment completed, alert/oriented, vital signs stable, denies pain or discomfort, heart RRR/distal pulses are palapble, lungs CTA/ no reps.difficulty noted, morning labs are still pending, FSBS 121 this morning / novolog given and patient is eating breakfast, he is hopefull to be discharged home today, family present at bedside, denies needs at this time
[2018-07-23] MEDS ORDERED: COUMADIN 1MG1 MG/TAB PO (10:19)
[2018-07-23] MEDS ORDERED: NEURONTIN300 MG/CAP PO (10:24)
[2018-07-23] MEDS ORDERED: LASIX 80MG TABL80 MG PO (10:24)
--- NOTE | 2018-07-23 11:10 | NUR ---
The patient is to discharge back home with his today, 07/23. SW presented and explained the IM form to the patient. The patient verbalized understanding, signed, and he was provided a copy. No additional needs at this time.
--- NOTE | 2018-07-23 11:45 | NUR ---
Discharge orders discussed, instructed to follow up with and to Continue dialysis at [facility] as scheduled, and I both sat down and discussed new meds and med changes with patient and his , I removed his left arm IV site, instructed on imporatance of keeping Dialysis catheter clean and dry/ NO showers/ baths, he is leaving with his and daughter, I personally escorted them out the their vehicle
[2018-07-24 16:46] LABS: HCV GENOTYPE Undetected (())
== END 2018-07-23 11:47 | disposition home or self-care (01) | DRG 674 ==
LOC: MEDICAL 13:50
PROVIDERS: ADMIT Internal Medicine Nephrology
PROC: 0JHD0XZ Insertion of Tunneled Vascular Access Device into Right Upper Arm Subcutaneous Tissue and Fascia, Open Approach (ICD-10-PCS; principal; 2018-07-18)
PROC: 02H633Z Insertion of Infusion Device into Right Atrium, Percutaneous Approach (ICD-10-PCS; 2018-07-18)
PROC: 5A1D70Z Performance of Urinary Filtration, Intermittent, Less than 6 Hours Per Day (ICD-10-PCS; 2018-07-19)
PROC: 5A1D70Z Performance of Urinary Filtration, Intermittent, Less than 6 Hours Per Day (ICD-10-PCS; 2018-07-20)
PROC: 5A1D70Z Performance of Urinary Filtration, Intermittent, Less than 6 Hours Per Day (ICD-10-PCS; 2018-07-21)
PROC: 5A1D70Z Performance of Urinary Filtration, Intermittent, Less than 6 Hours Per Day (ICD-10-PCS; 2018-07-22)
DX: I12.0 Hypertensive chronic kidney disease with stage 5 chronic kidney disease or end stage renal disease (principal); N18.5 Chronic kidney disease, stage 5; E11.22 Type 2 diabetes mellitus with diabetic chronic kidney disease; Z23 Encounter for immunization; Z85.51 Personal history of malignant neoplasm of bladder; D63.1 Anemia in chronic kidney disease; I25.10 Atherosclerotic heart disease of native coronary artery without angina pectoris; Z95.1 Presence of aortocoronary bypass graft; E78.5 Hyperlipidemia, unspecified; K74.60 Unspecified cirrhosis of liver; Z85.030 Personal history of malignant carcinoid tumor of large intestine; Z95.5 Presence of coronary angioplasty implant and graft; E11.42 Type 2 diabetes mellitus with diabetic polyneuropathy; Z87.891 Personal history of nicotine dependence; R07.9 Chest pain, unspecified; T50.3X5A Adverse effect of electrolytic, caloric and water-balance agents, initial encounter; I95.3 Hypotension of hemodialysis; R06.02 Shortness of breath
CPT/HCPCS: C1769; J0882; J1644; J1815; J2250; J3010

== ENCOUNTER 2018-10-22 10:28 | Outpatient (CLI) | payer MEDICARE ==
[~2018-10-22] VITALS: Ht 160 cm; Wt 87.3 kg
[2018-10-22] VITALS (7 sets, daily range): BP systolic 164–192; BP diastolic 72–87; PULSE 59–61; TEMP 98
[~2018-10-22 10:28] MED LIST changes: +COUMADIN 1MG1 MG/TAB PO; +FOLIC ACID 11 MG/TA1 PO; +LASIX 80MG TABL80 MG PO; +TUMS500 MG PO; +VITAMIN B12 781 TAB PO
[2018-10-22 11:37] LABS: INR 1.1 (0.8-3.0); PROTHROMBIN TIME 12.7 SECONDS (9.7-12.8)
[2018-10-22] MEDS ORDERED: NEURONTIN300 MG/CAP PO (11:50)
[2018-10-22] MEDS ORDERED: COUMADIN 1MG1 MG/TAB PO (11:50)
[2018-10-22] MEDS ORDERED: QUESTRAN4 GM/9 GM PO (11:51)
[2018-10-22] MEDS ORDERED: MASON NATURAL2000 IU PO (11:55)
[2018-10-22] MEDS ORDERED: MAG-OX 400400 MG/TAB PO (11:56)
[2018-10-22] MEDS ORDERED: TOPROL XL 50MG50 MG PO (11:57)
[2018-10-22] MEDS ORDERED: ZYLOPRIM 100MG100 MG PO (11:57)
--- NOTE | 2018-10-22 12:55 | NUR ---
Pt to procedure,report to Jigar Campbell.
--- NOTE | 2018-10-22 13:11 | NUR ---
ALL MEDICATIONS GIVEN WITH VORB WITH MD. SEE MERGE FOR ALL MEDICATION ADMIN TIMES. SEE MERGE FOR ALL RASS ASSESSMENTS DURING AND POST PROCEDURE.
--- NOTE | 2018-10-22 14:56 | NUR ---
Verbal order from Dr Belinda juares for pt to discharge home at this time.
--- NOTE | 2018-10-22 15:27 | NUR ---
Dischargeinstructions given to pt.pt verbalizes understanding.INT removed,catheter tip intact.Pt escortedout by thisnurse.
== END 2018-10-22 16:35 | disposition home or self-care (01) ==
LOC: COL.CAR 10:28
PROVIDERS: Radiology Diagnostic Radiology
DX: T82.898A Other specified complication of vascular prosthetic devices, implants and grafts, initial encounter (principal); E11.22 Type 2 diabetes mellitus with diabetic chronic kidney disease; E11.42 Type 2 diabetes mellitus with diabetic polyneuropathy; I12.0 Hypertensive chronic kidney disease with stage 5 chronic kidney disease or end stage renal disease; N18.6 End stage renal disease; N17.9 Acute kidney failure, unspecified; M10.9 Gout, unspecified; Z99.2 Dependence on renal dialysis; Z85.038 Personal history of other malignant neoplasm of large intestine; Z90.49 Acquired absence of other specified parts of digestive tract; Z95.5 Presence of coronary angioplasty implant and graft; Z86.73 Personal history of transient ischemic attack (TIA), and cerebral infarction without residual deficits; Z79.4 Long term (current) use of insulin; Z88.0 Allergy status to penicillin; Z88.1 Allergy status to other antibiotic agents; G47.30 Sleep apnea, unspecified; Z95.1 Presence of aortocoronary bypass graft; Z79.01 Long term (current) use of anticoagulants; Z87.891 Personal history of nicotine dependence
CPT/HCPCS: J1644; Q9967

== ENCOUNTER → 2019-01-07 | Outpatient (CLI) | payer MEDICARE ==
[~2019-01-07] VITALS: Ht 160 cm; Wt 86.2 kg
[~2019-01-07] MED LIST changes: +MAG-OX 400400 MG/TAB PO; +MASON NATURAL2000 IU PO; +NOVOLIN R100 U/ML SQ
[2019-01-07 12:55] VITALS: BP 175/85; PULSE 64
[2019-01-07 13:45] VITALS: BP 187/79; PULSE 73
--- NOTE | 2019-01-07 13:53 | NUR ---
dock or pier laborer staff went iover dc information with pt. pt leaves ambulatory with staff to lobby.
== END ==
LOC: COL.RAD 12:23
DX: Z49.01 Encounter for fitting and adjustment of extracorporeal dialysis catheter (principal); N18.6 End stage renal disease

== ENCOUNTER 2019-03-09 23:16 | Inpatient (IN) | payer MEDICARE ==
[~2019-03-09] VITALS: Ht 160 cm; Wt 90.0 kg
[~2019-03-09 23:16] MED LIST changes: +NITRO-DUR0.4 MG/PAT TD
[2019-03-09 23:38] LABS: BASO % 0.4 % (0.0-2.0); EOS # 0.1 (0.0-0.7); EOS % 1.6 % (0-4.0); GRAN # 3.5 (1.4-6.5); GRAN % 68.9 % (42.2-75.2); LYMPH % 19.6 % (20.0-51.0); MEAN CELL VOLUME 95 fl (80.0-100.0); MEAN CORPUSCULAR HGB CONC 32 g/dl (33.0-37.0); MEAN PLATELET VOLUME 12.3 fl (7.4-10.4); MONO # 0.5 (0.1-0.6); MONO % 9.1 % (1.7-9.3); PLATELET COUNT 56 K/mm3 (130-400); RED BLOOD COUNT 2.78 M/mm3 (4.20-5.60); REDCELL DISTRIBUTION WIDTH-CV 12.1 % (11.5-14.5)
[2019-03-09 23:40] LABS: HEMATOCRIT 26.5 % (42.0-52.0); HEMOGLOBIN 8.5 g/dl (13.5-18.0); MEAN CORPUSCULAR HEMOGLOBIN 31 pg (27.0-31.0)
[2019-03-09 23:45] LABS: PROTHROMBIN TIME 11.6 SECONDS (9.7-12.8)
[2019-03-09 23:47] LABS: PARTIAL THROMBOPLASTIN TIME 31.8 SECONDS (26.0-37.0)
[2019-03-09 23:49] LABS: ALBUMIN 3.5 gm/dL (3.5-5.0); BILIRUBIN,TOTAL 0.7 mg/dL (0.0-1.0); CALCIUM 8.2 mg/dL (8.4-10.2); POTASSIUM 4.5 mmol/L (3.4-5.0)
[2019-03-09 23:53] LABS: CREATININE, serum 4.74 (0.66-1.25)
[2019-03-10 00:01] LABS: TROPONIN-I 0.244 ng/mL (0.000-0.035)
--- NOTE | 2019-03-10 04:40 | NUR ---
Pt report received from ED at this time.
--- NOTE | 2019-03-10 05:00 | NUR ---
Pt arrived to medical floor 357. Pt ambulating in room at this time. Denies any pain or SOA. Nitro patch located to right upper chest. C/O left wrist IV burning.
[2019-03-10 05:11] VITALS: BP 156/62; PULSE 75; TEMP 97.6
--- NOTE | 2019-03-10 07:00 | NUR ---
Report provided to Elliot. Pt resting in bed with eyes closed at this time.
[2019-03-10 07:23] VITALS: BP 166/62; PULSE 76; TEMP 97.6
--- NOTE | 2019-03-10 09:56 | NUR ---
Assessment completed, alert/oriented, vital signs stable, denies any further chest pain or discomfort, heart RRR/ murmur noted with hx of AVR, he is paced on telemetry, heparin gtt infusing per protocol, report SOA is also resolved and denies resp.difficulty at this time, lungs CTA/ dimininished in lower lobes, he does report some intermittent brown sputum production, fsbs wnl/ eating a breakfast, stated it was really high last night because he had went to a birthday constitution party and had cake and ice cream last night, I have discussed plan of care with nurse Erlinda
--- NOTE | 2019-03-10 10:54 | NUR ---
NOMI met with the patient and the patient's , Gilma (ph#[phone]), to discuss discharge plan and to complete the Re-admission Interview. The patient recently discharged from the hospital, 03/08, and returned back home with his with no services. The patient reports things were going okay and then he started having chest pain. He states that he did pharmacy picking tech his prescriptions and take them as prescribed. The patient was admitted for non-stemi. The patient lives in [place] with his , Gilma. He reports independence with ADLs and has a cane, walker, wheelchair, and he receives home dialysis. The patient's PCP is Dr. Dheeraj Nix and he receives his medications at [facility] and the [facility] in [place]. He reports no difficulties obtaining his meds. The patient's advanced directives are in EMR. His DPOA-HC is his . The patient plans to return back home with his upon discharge. No other indentified needs at this time.
[2019-03-10 11:55] VITALS: BP 153/60; PULSE 63; TEMP 97.5
[2019-03-10 16:08] VITALS: BP 165/68; PULSE 70; TEMP 97.6
[2019-03-10 19:07] VITALS: BP 166/58; PULSE 70; TEMP 97.4
--- NOTE | 2019-03-10 20:30 | NUR ---
Initial shift assessment done- pt up and walking in the halls- denies chest pain- denies SOB at this time, VSS, Tele on, requesting small snack before bed- no other requests, pleasant, alert/orineted-
[2019-03-10 23:16] VITALS: BP 163/57; PULSE 68; TEMP 98.4
[2019-03-11 04:20] VITALS: BP 131/45; PULSE 65; TEMP 98.1
--- NOTE | 2019-03-11 05:41 | NUR ---
Quiet night-- has been sleeping most of the night- no requests, tele on.
[2019-03-11 07:19] LABS: BASO % 0.2 % (0.0-2.0); EOS # 0.2 (0.0-0.7); EOS % 3.4 % (0-4.0); GRAN # 3.8 (1.4-6.5); GRAN % 68.6 % (42.2-75.2); LYMPH # 1.1 (1.2-3.4); LYMPH % 20.4 % (20.0-51.0); MEAN CELL VOLUME 97 fl (80.0-100.0); MEAN CORPUSCULAR HGB CONC 32 g/dl (33.0-37.0); MEAN PLATELET VOLUME 11.5 fl (7.4-10.4); MONO # 0.4 (0.1-0.6); PLATELET COUNT 71 K/mm3 (130-400); RED BLOOD COUNT 2.78 M/mm3 (4.20-5.60); REDCELL DISTRIBUTION WIDTH-CV 12.5 % (11.5-14.5)
[2019-03-11 07:27] LABS: HEMOGLOBIN 8.7 g/dl (13.5-18.0); MEAN CORPUSCULAR HEMOGLOBIN 31 pg (27.0-31.0)
[2019-03-11 07:33] LABS: ALBUMIN 3.5 gm/dL (3.5-5.0); CALCIUM 8.2 mg/dL (8.4-10.2); PHOSPHOROUS 5.5 mg/dL (2.5-4.5); POTASSIUM 4.6 mmol/L (3.4-5.0)
[2019-03-11 07:39] LABS: CREATININE, serum 5.62 (0.66-1.25)
--- NOTE | 2019-03-11 08:11 | NUR ---
Transferred patient down by bed to [place] [address] for diaylsis at this time
--- NOTE | 2019-03-11 08:14 | NUR ---
Assessment completed, alert/oriented, vital signs stable, denies any further epsisodes of chest pain or discomfort, heart RRR/ paced on tele, denies any SOA this morning, lungs CTA/ diminished with some coarseness to his RLL/ patient reports some intermittent brown sputum production, patient has had breakfast, we have taken him down for dialysis already/ will give morning meds after his treatment, denied other needs at this time
[2019-03-11] MEDS ORDERED: MONODOX100 PO (09:21)
--- NOTE | 2019-03-11 11:20 | NUR ---
PT CURRENTLY IN DIALYSIS
--- NOTE | 2019-03-11 13:00 | NUR ---
WHEELED PATIENT TO ENTRANCE WHERE AWAITED WITH VEHICLE. PT AMBULATED TO VEHICLE WITHOUT DIFFICULTY.
--- NOTE | 2019-03-11 15:29 | NUR ---
Discharge orders discussed with patient, instructed to follow up with Cardiology as nina, instructed to conitnue previous dialysis scheduled, instructed to finish course of antibiotics as prescribed, IV and tele removed, he is leaving with his , FUNERAL LOCATION MANAGER escorted him out the door
== END 2019-03-11 15:30 | disposition home or self-care (01) | DRG 280 ==
LOC: COL.ER 23:16 → MEDICAL 03-10 03:59
PROVIDERS: Emergency Medicine; ADMIT Internal Medicine Nephrology
PROC: 5A1D70Z Performance of Urinary Filtration, Intermittent, Less than 6 Hours Per Day (ICD-10-PCS; principal; 2019-03-11)
DX: I21.A1 Myocardial infarction type 2 (principal); N18.6 End stage renal disease; I12.0 Hypertensive chronic kidney disease with stage 5 chronic kidney disease or end stage renal disease; N25.81 Secondary hyperparathyroidism of renal origin; E87.70 Fluid overload, unspecified; I25.10 Atherosclerotic heart disease of native coronary artery without angina pectoris; I27.20 Pulmonary hypertension, unspecified; E11.65 Type 2 diabetes mellitus with hyperglycemia; D63.1 Anemia in chronic kidney disease; K74.60 Unspecified cirrhosis of liver; E66.9 Obesity, unspecified; G47.30 Sleep apnea, unspecified; E78.5 Hyperlipidemia, unspecified; N40.0 Benign prostatic hyperplasia without lower urinary tract symptoms; E11.22 Type 2 diabetes mellitus with diabetic chronic kidney disease; K21.9 Gastro-esophageal reflux disease without esophagitis; M19.90 Unspecified osteoarthritis, unspecified site; M81.0 Age-related osteoporosis without current pathological fracture; Z99.2 Dependence on renal dialysis; Z95.1 Presence of aortocoronary bypass graft; Z95.0 Presence of cardiac pacemaker; Z79.01 Long term (current) use of anticoagulants; Z79.4 Long term (current) use of insulin; Z88.0 Allergy status to penicillin; Z88.1 Allergy status to other antibiotic agents; Z87.891 Personal history of nicotine dependence
CPT/HCPCS: J1644; J1815; J1940; J7030

== ENCOUNTER → 2019-03-27 | Outpatient (CLI) | payer MEDICARE ==
[~2019-03-27] MED LIST changes: +MONODOX100 PO
[2019-03-28 00:34] LABS: RHEUMATOID FACTOR-SCREEN <15 IU/mL (0-29)
[2019-03-29 15:30] LABS: ANGIOTENSIN CONVERTING ENZYME 52 U/L (16 - 85)
== END ==
LOC: COL.LAB 11:01
PROVIDERS: Internal Medicine Pulmonary Disease
DX: R06.02 Shortness of breath (principal)

== ENCOUNTER 2019-04-06 22:57 | Inpatient (IN) | payer MEDICARE ==
[~2019-04-06] VITALS: Ht 160 cm; Wt 86.5 kg
--- NOTE | 2019-04-06 23:19 | NUR ---
RECEIVED TELEPHONE REPORT FROM REY BERNSTEIN FROM [facility]. AWAITING ARRIVAL OF PT FROM EMS.
--- NOTE | 2019-04-06 23:36 | NUR ---
RECEIVED REPORT FROM MATT, ANIMAL PATHOLOGY TEACHER WITH [facility]. AWAITING ARRIVAL OF PT TO UNIT.
[2019-04-06 23:48] VITALS: BP 196/94; PULSE 69
--- NOTE | 2019-04-06 23:48 | NUR ---
PT ARRIVED TO UNIT VIA STRETCHER ACCOMPANIED BY [facility]. PT ABLE TO TRANSFER SELF TO ICU BED. PT PLACED ON CONTINUOUS BEDSIDE MONITOR. PT ON RA. NO ACUTE S/S OF DISTRESS NOTED UPON ARRIVAL. PT STATES THAT HIS CHEST PAIN IS MIDSTERNAL TOWARDS THE LEFT SIDE OF CHEST 10/02. CALL LIGHT EDUCATION GIVEN, VERBALIZED UNDERSTANDING. NITRO GTT CONTINUED FROM [facility] AT 5MCG/MIN, AWAITING ORDERS FROM DR ROQUE.
[2019-04-06 23:56] VITALS: O2SAT 95
[2019-04-06 23:58] VITALS: O2SAT 99
[2019-04-07] VITALS (166 sets, daily range): BP systolic 136–194; BP diastolic 51–96; PULSE 60–73; TEMP 97.7–98.6; O2SAT 91–100
--- NOTE | 2019-04-07 00:25 | NUR ---
FAMILY BROUGHT TO BEDSIDE. DR ROQUE AT BEDSIDE FOR ASSESSMENT AND DISCUSSING POC WITH PT AND FAMILY. ALL VERBALIZED UNDERSTANDING. DR ROQUE STATES PT WILL GET DIALYSIS TOMORROW AT SOME POINT AND TO START TITRATE NITRO GTT TO KEEP SBP LESS THAN 150. DR ROQUE REQUESTS ANESTHESIA TO PLACE A SECOND IV LINE, PCB DESIGN ENGINEER NOTIFIED AND CALLED ANESTHESIA, AWAITING THEIR ARRIVAL.
--- NOTE | 2019-04-07 00:30 | NUR ---
RUSSELL REQUESTS PT TO BE PLACED ON 2L VIA NC TO HELP WITH ANGINA. PT COMPLIANT WITH CARE.
[2019-04-07 01:04] LABS: PARTIAL THROMBOPLASTIN TIME 25.4 SECONDS (26.0-37.0)
--- NOTE | 2019-04-07 01:30 | NUR ---
PT UP TO TOILET IN ROOM, PT ABLE TO HAVE A BM AND VOID, SEE I&O FLOWSHEET. PT STATES CP HAS DECREASED TO 1/10.
--- NOTE | 2019-04-07 01:40 | NUR ---
NITRO GTT INCREASED TO 10MCG/MIN. SBP 160s.
--- NOTE | 2019-04-07 01:45 | NUR ---
ANESTHESIA AT BEDSIDE.
[2019-04-07 02:30] LABS: PROTHROMBIN TIME 12.1 SECONDS (9.7-12.8)
--- NOTE | 2019-04-07 02:39 | NUR ---
HEPARIN BOLUS AND GTT STARTED AT 10ML/HR PER PROTOCOL.
--- NOTE | 2019-04-07 03:15 | NUR ---
CRITICAL TROPONIN NOT CALLED TO PHYSICIAN R/T [facility] TROPONIN NOTED TO BE 1.569 AND IS NOW TREANDING DOWN. PT SLEEPING EASILY, NO CHEST GUARDING NOTED. VS IMPROVING.
[2019-04-07 05:12] LABS: BASO % 0.5 % (0.0-2.0); EOS # 0.2 (0.0-0.7); GRAN # 3.9 (1.4-6.5); HEMOGLOBIN 9.6 g/dl (13.5-18.0); LYMPH # 1.5 (1.2-3.4); MEAN CELL VOLUME 97 fl (80.0-100.0); MEAN CORPUSCULAR HEMOGLOBIN 30 pg (27.0-31.0); MEAN CORPUSCULAR HGB CONC 31 g/dl (33.0-37.0); MEAN PLATELET VOLUME 12.1 fl (7.4-10.4); MONO # 0.4 (0.1-0.6); MONO % 7.3 % (1.7-9.3); PLATELET COUNT 64 K/mm3 (130-400); REDCELL DISTRIBUTION WIDTH-CV 13.4 % (11.5-14.5)
[2019-04-07 05:24] LABS: ALBUMIN 3.6 gm/dL (3.5-5.0); BILIRUBIN,TOTAL 0.9 mg/dL (0.0-1.0); CALCIUM 8.2 mg/dL (8.4-10.2); CREATININE, serum 3.57 (0.66-1.25); TOTAL PROTEIN 7.1 gm/dL (6.4-8.2)
[2019-04-07 05:37] LABS: TROPONIN-I 6 HR POST INITIAL 0.422 ng/mL (0.000-0.034)
--- NOTE | 2019-04-07 06:14 | NUR ---
NOTIFIED DR ROQUE ABOUT TROP TREND SINCE ADMISSION FROM 0.176 TO 0.422. PT DENIES ANY CHEST PAIN AT THIS TIME. NO NEW ORDERS.
--- NOTE | 2019-04-07 07:40 | NUR ---
MD Delvis notified of consultationMD in vehicle commuting and will review pt chart as soon as possible - no orders recieved.
--- NOTE | 2019-04-07 09:43 | NUR ---
Pt transfered to [place] [address] for hemodialysis, recieved by REY Brown
--- NOTE | 2019-04-07 10:56 | NUR ---
Initial visit; Patient thanked Show Horse Driver for looking in on him and is deciding whether he wants Show Horse Driver to call a Bow Maker Machine Tender or not. His children expressed concern for his health and requested a Bow Maker Machine Tender come though Patient is not sure at this point as he is feeling better. Show Horse Driver will follow up.
--- NOTE | 2019-04-07 13:41 | NUR ---
Pt back from hemodialysis, pt stable, AOx4, normotensive, pt had BM and ambulated to bedside recliner. No complaints. Spouse at bedside
--- NOTE | 2019-04-07 14:21 | NUR ---
Follow-up visit; Patient and his thanked for checking to make sure a Process Improvement Analyst had been to see Geoff. He visit while patient was in dialysis. will continue to look in on patient.
--- NOTE | 2019-04-07 19:00 | NUR ---
RECEIVED REPORT FROM REY BILLY. PT SITTING UP IN RECLINER PLAYING CARDS. PT ON RA AND TELEMATRY BOX. CALL LIGHT WITHIN REACH. NO ACUTE S\S OF DISTRESS NOTED.
--- NOTE | 2019-04-07 19:33 | NUR ---
DR RAGLAND AT BEDSIDE FOR ASSESSMENT. NEW ORDERS RECEIVED.
--- NOTE | 2019-04-07 21:40 | NUR ---
ELKE PRINTED EDUCATION GIVEN TO PT. PT INFORMED OF TRANSFER TO 311 SHORTLY. VERBALIZED UNDERSTANDING. PT WALKS AROUND TO GET OWN BELONGINGS GATHERED UP.
--- NOTE | 2019-04-07 22:22 | NUR ---
REPORT GIVEN TO REY GUERRERO ON MEDICAL. PT TO BE TRANSFERRED TO [facility] IN BY NURSE.
--- NOTE | 2019-04-07 22:45 | NUR ---
PT TRANFERRED TO 311. PT WALKS AROUND ROOM AND SITS UP IN THE RECLINER. CALL LIGHT WITHIN REACH. NEW NURSE AT BEDSIDE. ALL PERSONAL BELONGINGS SENT WITH PT.
--- NOTE | 2019-04-07 23:00 | NUR ---
Pt arrived to room 311, transferred per wheelchair by ICU staff. Pt awake, a&o, cooperative c cares. Pt oriented to room, unit policies et current POC. Questions invited et answered et pt verbalizes understanding. No changes from previous assessment. Pt denies c/o or needs. Call light in reach, will continue to monitor.
[2019-04-08 03:47] VITALS: BP 128/56; PULSE 67; TEMP 97.9
[2019-04-08 06:12] LABS: BASO % 0.3 % (0.0-2.0); EOS # 0.2 (0.0-0.7); EOS % 3.5 % (0-4.0); GRAN # 3.7 (1.4-6.5); GRAN % 56.3 % (42.2-75.2); HEMOGLOBIN 10.4 g/dl (13.5-18.0); LYMPH % 29.9 % (20.0-51.0); MEAN CELL VOLUME 97 fl (80.0-100.0); MEAN CORPUSCULAR HEMOGLOBIN 31 pg (27.0-31.0); MEAN CORPUSCULAR HGB CONC 32 g/dl (33.0-37.0); MEAN PLATELET VOLUME 11.9 fl (7.4-10.4); MONO # 0.6 (0.1-0.6); MONO % 9.7 % (1.7-9.3); PLATELET COUNT 71 K/mm3 (130-400); REDCELL DISTRIBUTION WIDTH-CV 13.5 % (11.5-14.5)
[2019-04-08 06:32] LABS: ALBUMIN 3.7 gm/dL (3.5-5.0); CALCIUM 8.2 mg/dL (8.4-10.2); CREATININE, serum 3.51 (0.66-1.25); PHOSPHOROUS 4.2 mg/dL (2.5-4.5); POTASSIUM 3.8 mmol/L (3.4-5.0)
[2019-04-08 08:02] VITALS: BP 148/57; PULSE 68; TEMP 97.5
--- NOTE | 2019-04-08 09:05 | NUR ---
Pt alert and oriented and denies pain, SOB, or dizziness this am. Pt IV's patent no redness or infiltration noted. Pt had ECHO done this am. Pt going to dialysis after breakfast and OK with Stephanie driver/refuse collector. Pt JESSICA fistula no redness or increased edema noted some bruising noted. Pt has call light in reach and am assessment completed.
--- NOTE | 2019-04-08 09:20 | NUR ---
Pt taken down to dialysis.
--- NOTE | 2019-04-08 12:11 | NUR ---
Pt returned from dialysis brought back by Stephanie LE. Pt alert and oriented and has call light in reach. Pt tolerated dialysis without incident.
--- NOTE | 2019-04-08 13:05 | NUR ---
Pt given discharge instructions. Pt IV's discontinued in LF and LH. No infiltration or redness noted. Pt education given on medications, diagnosis, and follow up instructions. Pt has all belongings. Pt escorted out by aide via wheelchair without incident. Pt refused insulin and eating before leaving.
== END 2019-04-08 13:08 | disposition home or self-care (01) | DRG 280 ==
LOC: ICU 22:57 → MEDICAL 04-07 23:00
PROVIDERS: ADMIT Internal Medicine Nephrology
PROC: 5A1D70Z Performance of Urinary Filtration, Intermittent, Less than 6 Hours Per Day (ICD-10-PCS; principal; 2019-04-07)
DX: I21.4 Non-ST elevation (NSTEMI) myocardial infarction (principal); N18.6 End stage renal disease; I12.0 Hypertensive chronic kidney disease with stage 5 chronic kidney disease or end stage renal disease; N25.81 Secondary hyperparathyroidism of renal origin; K74.60 Unspecified cirrhosis of liver; E11.22 Type 2 diabetes mellitus with diabetic chronic kidney disease; I25.10 Atherosclerotic heart disease of native coronary artery without angina pectoris; D63.1 Anemia in chronic kidney disease; E11.40 Type 2 diabetes mellitus with diabetic neuropathy, unspecified; E66.9 Obesity, unspecified; N40.1 Benign prostatic hyperplasia with lower urinary tract symptoms; G47.33 Obstructive sleep apnea (adult) (pediatric); E78.5 Hyperlipidemia, unspecified; Z99.2 Dependence on renal dialysis; Z95.1 Presence of aortocoronary bypass graft; Z85.51 Personal history of malignant neoplasm of bladder; Z79.4 Long term (current) use of insulin; Z79.01 Long term (current) use of anticoagulants; Z87.891 Personal history of nicotine dependence; Z88.0 Allergy status to penicillin; Z88.1 Allergy status to other antibiotic agents; Z90.49 Acquired absence of other specified parts of digestive tract; Z85.038 Personal history of other malignant neoplasm of large intestine; Z95.2 Presence of prosthetic heart valve
CPT/HCPCS: J1644; J1815; J7030

== ENCOUNTER → 2019-04-25 | Outpatient (CLI) | payer MEDICARE | LOC: COL.RAD 12:08 | DX: J18.1 Lobar pneumonia, unspecified organism (principal); Z95.1 Presence of aortocoronary bypass graft; Z95.828 Presence of other vascular implants and grafts | CPT/HCPCS: A9540; A9567 ==

== ENCOUNTER 2019-06-20 10:00 | Outpatient (CLI) | payer MEDICARE ==
[2019-06-20] VITALS (7 sets, daily range): BP systolic 124–165; BP diastolic 65–81; PULSE 59–73; TEMP 97.8
[~2019-06-20] VITALS: Ht 160 cm; Wt 87.3 kg
[~2019-06-20 10:00] MED LIST changes: +APRESOLINE 25MG25 MG PO; +PHOS LO
[2019-06-20] MEDS ORDERED: NITRO-DUR0.4 MG/PAT TD (10:57)
[2019-06-20] MEDS ORDERED: MASON NATURAL2000 IU (10:59)
--- NOTE | 2019-06-20 12:18 | NUR ---
SEE MERGE DOCUMENTATION FOR MEDICATION ADMINISTRATION TIMES AND INTRA/POST PROCEDURE SEDATION ASSESSMENTS.
--- NOTE | 2019-06-20 14:00 | NUR ---
Pt is ready for discharge. PT returned from procedure at 1300, bs report was received from Fredi LE. pt has been awake and alert for the duration of his recovery. bandaid to puncture site to rt forearm is clean and dry with no bleeding or hematoma. Pt has been able to eat with no problem, and he is ambulatory at this time to bathroom with steady gait. dc instructions were reviewed with pt and his . written instructions were provided, no concerns or questions expressed at time of discharge. 22g saline lock to lh dc'd with cath intact, pressure dressing was applied. pt escorted to exit with via wheelchair.
== END 2019-06-20 16:02 | disposition home or self-care (01) ==
LOC: COL.CAR 10:00
DX: T82.898A Other specified complication of vascular prosthetic devices, implants and grafts, initial encounter (principal); I12.0 Hypertensive chronic kidney disease with stage 5 chronic kidney disease or end stage renal disease; E11.22 Type 2 diabetes mellitus with diabetic chronic kidney disease; N18.6 End stage renal disease; E11.42 Type 2 diabetes mellitus with diabetic polyneuropathy; M10.9 Gout, unspecified; Z99.2 Dependence on renal dialysis; Z85.038 Personal history of other malignant neoplasm of large intestine; Z90.49 Acquired absence of other specified parts of digestive tract; Z95.5 Presence of coronary angioplasty implant and graft; Z86.73 Personal history of transient ischemic attack (TIA), and cerebral infarction without residual deficits; Z95.1 Presence of aortocoronary bypass graft; Z85.51 Personal history of malignant neoplasm of bladder; Z88.0 Allergy status to penicillin; Z88.1 Allergy status to other antibiotic agents; Z88.2 Allergy status to sulfonamides; Z79.4 Long term (current) use of insulin; Z79.01 Long term (current) use of anticoagulants; Z87.891 Personal history of nicotine dependence
CPT/HCPCS: J1644; J2250; J3010; Q9967

== ENCOUNTER 2019-07-08 12:40 | Inpatient (IN) | payer MEDICARE ==
[~2019-07-08] VITALS: Ht 160 cm; Wt 86.4 kg
[~2019-07-08 12:40] MED LIST changes: +MASON NATURAL2000 IU
[2019-07-08 15:45] VITALS: BP 141/52; PULSE 61; TEMP 97.5
[2019-07-08 16:32] LABS: INR 1.1 (0.8-3.0); PROTHROMBIN TIME 12.5 SECONDS (9.7-12.8)
[2019-07-08 16:45] LABS: ALBUMIN 4.2 gm/dL (3.5-5.0); BILIRUBIN,TOTAL 0.8 mg/dL (0.0-1.0); CALCIUM 8.7 mg/dL (8.4-10.2); CREATININE, serum 3.88 (0.66-1.25); POTASSIUM 4.1 mmol/L (3.4-5.0); TOTAL PROTEIN 8.3 gm/dL (6.4-8.2)
[2019-07-08 16:58] LABS: BASO % 0.3 % (0.0-2.0); EOS # 0.2 (0.0-0.7); EOS % 2.9 % (0-4.0); GRAN # 4.3 (1.4-6.5); GRAN % 67.5 % (42.2-75.2); LYMPH # 1.3 (1.2-3.4); LYMPH % 21.3 % (20.0-51.0); MEAN CELL VOLUME 92 fl (80.0-100.0); MEAN CORPUSCULAR HGB CONC 31 g/dl (33.0-37.0); MEAN PLATELET VOLUME 12.4 fl (7.4-10.4); MONO # 0.5 (0.1-0.6); MONO % 7.8 % (1.7-9.3); PLATELET COUNT 79 K/mm3 (130-400); RED BLOOD COUNT 3.09 M/mm3 (4.20-5.60)
[2019-07-08 17:08] LABS: HEMATOCRIT 28.4 % (42.0-52.0); HEMOGLOBIN 8.7 g/dl (13.5-18.0); MEAN CORPUSCULAR HEMOGLOBIN 28 pg (27.0-31.0)
--- NOTE | 2019-07-08 18:37 | NUR ---
ADMITTED TO ROOM. PT AWAITING FOR DR ROQUE TO COME SEE HIM STILL.
--- NOTE | 2019-07-08 18:43 | NUR ---
PT DIDNT BRING HIS MED LIST WITH HIM. THIS NURSE AND PT EDITED MED REC BEST TO HIS KNOWLEDGE, CALLED CLIN TO ATTEMPT TO HAVE ONE SENT OVER WITHOUT ANSWER. COUMADIN DOSE WAS CHANGED PRIOR TO PROVDER RESTARTING MEDS, WILL NOTIFY MYA WHEN HE COMES TO FACILITY TO SEE PT.
[2019-07-08 19:24] VITALS: BP 153/61; PULSE 73; TEMP 98.1
[2019-07-08 23:23] VITALS: BP 141/57; PULSE 67; TEMP 98.5
--- NOTE | 2019-07-08 23:48 | NUR ---
Patient alert and oreinted. Thrill noted on fistual, no drainage noted on site. Currently open to air. Vital signs stable at this time.
[2019-07-09 03:07] VITALS: BP 110/47; PULSE 52; TEMP 98.4
--- NOTE | 2019-07-09 05:44 | NUR ---
Patient requested nurse's aid to check blood glucose, result 62mg/dL. Roque crackers and orange juice provided. Will recheck. Patient denies any other needs at this time.
[2019-07-09 06:51] LABS: BASO % 0.2 % (0.0-2.0); EOS # 0.1 (0.0-0.7); EOS % 2.6 % (0-4.0); GRAN # 3.2 (1.4-6.5); GRAN % 60.7 % (42.2-75.2); INR 1.1 (0.8-3.0); LYMPH # 1.4 (1.2-3.4); MEAN CELL VOLUME 92 fl (80.0-100.0); MEAN CORPUSCULAR HGB CONC 30 g/dl (33.0-37.0); MEAN PLATELET VOLUME 12.2 fl (7.4-10.4); MONO # 0.5 (0.1-0.6); MONO % 9.3 % (1.7-9.3); PLATELET COUNT 73 K/mm3 (130-400); PROTHROMBIN TIME 13.1 SECONDS (9.7-12.8); RED BLOOD COUNT 2.92 M/mm3 (4.20-5.60); REDCELL DISTRIBUTION WIDTH-CV 15.1 % (11.5-14.5)
[2019-07-09 07:00] LABS: HEMATOCRIT 26.8 % (42.0-52.0); HEMOGLOBIN 8.1 g/dl (13.5-18.0); MEAN CORPUSCULAR HEMOGLOBIN 28 pg (27.0-31.0)
[2019-07-09 07:09] LABS: ALBUMIN 3.8 gm/dL (3.5-5.0); CALCIUM 7.9 mg/dL (8.4-10.2); CREATININE, serum 4.41 (0.66-1.25); PHOSPHOROUS 5.5 mg/dL (2.5-4.5); POTASSIUM 3.9 mmol/L (3.4-5.0)
[2019-07-09 07:15] VITALS: BP 138/55; PULSE 66; TEMP 97.7
--- NOTE | 2019-07-09 09:31 | NUR ---
Pt assessment completed and charted. Morning medications administered per AUG. Pt is A&O, independent in room. Pt on room air, breathing is even and unlabored, LS cta. Pt denies SOB, chest pain, N/V/D, abdominal pain, general pain. Fistula to JESSICA, bruising noted, thrill and bruit present. Pulses strong bilaterally. BLE 1+ edema present. Pt expresses no other concerns at this time. Pt escorted down to dialysis via WC.
--- NOTE | 2019-07-09 11:30 | NUR ---
Pt back from dialysis at this time. Denies pain or other needs at this time.
[2019-07-09 11:37] VITALS: BP 139/51; PULSE 61; TEMP 97.9
--- NOTE | 2019-07-09 12:03 | NUR ---
Initial visit; Patient thanked Coordinator Of Genetic Services for looking in on him and offering spirtual care.
--- NOTE | 2019-07-09 14:21 | NUR ---
Director Of Strategy & Mobile met with patient to discuss discharge planning. Patient lives in [place] with his , Gilma (ph#[phone]) and sees Dr. Dheeraj Nix for primary care. Patient obtains medications from [facility] with no difficulties. Patient reports independence with ADLS and uses CPAP at home. Patient has Advance Directives in EMR which designate patient's , Gilma. Patient plans to return home upon discharge. SW to continue to follow as needed.
[2019-07-09 17:16] VITALS: BP 147/49; PULSE 67; TEMP 98.2
--- NOTE | 2019-07-09 19:16 | NUR ---
Pt up ambulating halls. No pain or concerns expressed. Pressure dressing to JESSICA fistula removed, no complications noted. Report given to REY Pedraza.
[2019-07-09 20:00] VITALS: BP 142/48; PULSE 102; PULSE 66
--- NOTE | 2019-07-09 20:15 | NUR ---
Sitting in recliner. Assessment complete. Bases bilateral crackles otherwise clear. Heart sounds normal. Bowels active x4. Pulses present throughout. Bilateral lower leg edema +2. No IV access at this time. Denies pain. Left forearm abrasion present-open to air. Denies needs. Call light in reach.
[2019-07-09 23:55] VITALS: BP 140/58; PULSE 64; TEMP 98.4
[2019-07-10 02:44] VITALS: BP 146/53; PULSE 67; TEMP 98.7
[2019-07-10 06:15] VITALS: TEMP 100.3
[2019-07-10 06:21] LABS: BASO % 0.2 % (0.0-2.0); EOS # 0.2 (0.0-0.7); GRAN # 3.2 (1.4-6.5); GRAN % 59.8 % (42.2-75.2); LYMPH # 1.4 (1.2-3.4); LYMPH % 26.6 % (20.0-51.0); MEAN CELL VOLUME 93 fl (80.0-100.0); MEAN CORPUSCULAR HGB CONC 30 g/dl (33.0-37.0); MONO # 0.6 (0.1-0.6); MONO % 10.2 % (1.7-9.3); PLATELET COUNT 69 K/mm3 (130-400); RED BLOOD COUNT 2.74 M/mm3 (4.20-5.60); REDCELL DISTRIBUTION WIDTH-CV 15.3 % (11.5-14.5)
[2019-07-10 06:22] LABS: HEMATOCRIT 25.4 % (42.0-52.0); HEMOGLOBIN 7.7 g/dl (13.5-18.0); MEAN CORPUSCULAR HEMOGLOBIN 28 pg (27.0-31.0)
[2019-07-10 06:23] LABS: INR 1.1 (0.8-3.0)
--- NOTE | 2019-07-10 06:32 | NUR ---
Patient had uneventful night. Resting in bed this AM. Call light in reach.
[2019-07-10 06:40] LABS: ALBUMIN 3.5 gm/dL (3.5-5.0); CALCIUM 7.6 mg/dL (8.4-10.2); CREATININE, serum 4.63 (0.66-1.25); PHOSPHOROUS 5.4 mg/dL (2.5-4.5); POTASSIUM 4.2 mmol/L (3.4-5.0)
--- NOTE | 2019-07-10 07:18 | NUR ---
Report given to REY Torres
[2019-07-10 08:10] VITALS: BP 147/54; PULSE 69; TEMP 98.1
--- NOTE | 2019-07-10 10:15 | NUR ---
Pt assessment completed and charted. Morning medications adminsitered per AUG. Pt sitting in recliner at bedside, A&O, indpendent in room. Pt up to shower, denies pain, SOB, N/V/D, chest pain. pt on room air, breathing is even and unlabored. LS cta. heart RRR. Pt has RFA fistula, bruit and thrill present. Pulses strong bilaterally. No IV. BLE 1+ edema, mild. No other concerns expressed by patient at this time.
[2019-07-10 12:52] VITALS: BP 150/56; PULSE 73; TEMP 98
[2019-07-10] MEDS ORDERED: COUMADIN 2MG2 MG/TAB PO (14:09)
--- NOTE | 2019-07-10 16:02 | NUR ---
Pt discharge instructions discussed and reviewed with patient who verbalized understanding, all questions answered, no further concerns expressed. Pt escorted out via WC by PRANEETH Minor.
== END 2019-07-10 15:00 | disposition home or self-care (01) | DRG 314 ==
LOC: MEDICAL 12:40
PROVIDERS: ADMIT Internal Medicine Nephrology
PROC: 5A1D70Z Performance of Urinary Filtration, Intermittent, Less than 6 Hours Per Day (ICD-10-PCS; principal; 2019-07-10)
DX: T82.868A Thrombosis due to vascular prosthetic devices, implants and grafts, initial encounter (principal); N18.6 End stage renal disease; N25.81 Secondary hyperparathyroidism of renal origin; I12.0 Hypertensive chronic kidney disease with stage 5 chronic kidney disease or end stage renal disease; D62 Acute posthemorrhagic anemia; E87.70 Fluid overload, unspecified; I25.10 Atherosclerotic heart disease of native coronary artery without angina pectoris; K74.60 Unspecified cirrhosis of liver; D63.1 Anemia in chronic kidney disease; E66.9 Obesity, unspecified; E11.22 Type 2 diabetes mellitus with diabetic chronic kidney disease; E11.40 Type 2 diabetes mellitus with diabetic neuropathy, unspecified; G47.30 Sleep apnea, unspecified; E78.5 Hyperlipidemia, unspecified; N40.0 Benign prostatic hyperplasia without lower urinary tract symptoms; Z85.51 Personal history of malignant neoplasm of bladder; Z99.2 Dependence on renal dialysis; Z95.1 Presence of aortocoronary bypass graft; Z79.01 Long term (current) use of anticoagulants; Z79.4 Long term (current) use of insulin; Z79.891 Long term (current) use of opiate analgesic; Z87.891 Personal history of nicotine dependence; Z88.0 Allergy status to penicillin; Z88.2 Allergy status to sulfonamides; Z88.1 Allergy status to other antibiotic agents; Z91.19 Patient's noncompliance with other medical treatment and regimen
CPT/HCPCS: J1644; J1815; J2916; J7030; Q5105

== ENCOUNTER 2019-12-22 08:37 | Inpatient (IN) | payer MEDICARE ==
[~2019-12-22] VITALS: Ht 160 cm; Wt 85.2 kg
[~2019-12-22 08:37] MED LIST changes: +COUMADIN 2MG2 MG/TAB PO
[2019-12-22 13:38] LABS: HEMATOCRIT 38.2 % (42.0-52.0); HEMOGLOBIN 11.8 g/dl (13.5-18.0); MEAN CELL VOLUME 103 fl (80.0-100.0); MEAN CORPUSCULAR HEMOGLOBIN 32 pg (27.0-31.0); MEAN CORPUSCULAR HGB CONC 31 g/dl (33.0-37.0); MEAN PLATELET VOLUME 12.3 fl (7.4-10.4); PLATELET COUNT 71 K/mm3 (130-400); RED BLOOD COUNT 3.72 M/mm3 (4.20-5.60); REDCELL DISTRIBUTION WIDTH-CV 13.7 % (11.5-14.5)
[2019-12-22 13:49] LABS: ALBUMIN 4.5 gm/dL (3.5-5.0); BILIRUBIN,TOTAL 1.6 mg/dL (0.0-1.0); CALCIUM 8.4 mg/dL (8.4-10.2); CREATININE, serum 7.88 (0.66-1.25); PHOSPHOROUS 6.2 mg/dL (2.5-4.5)
[2019-12-22 13:52] LABS: POTASSIUM 5.8 mmol/L (3.4-5.0)
[2019-12-22 14:00] VITALS: BP 154/70; PULSE 110; TEMP 100.3
[2019-12-22 14:09] LABS: BAND 7 % (0-10); LYMPHOCYTE 122 % (20.0-51.0); NEUTROPHILS 73 % (42.0-75.2); PLATELET ESTIMATE DECREASED (NORMAL)
[2019-12-22 14:10] LABS: HYPOCHROMIA 1+
[2019-12-22 14:11] LABS: STOMATOCYTE 1+
[2019-12-22 15:10] VITALS: BP 188/70; PULSE 98; TEMP 98.8
--- NOTE | 2019-12-22 15:17 | NUR ---
Patient in dialysis. complained of chest pain at 10/02. Administered 0.4mg Sublingual Nitro PRN, Ordered by Dr. Garner.
[2019-12-22 15:56] LABS: INR 1.2 (0.8-3.0); PROTHROMBIN TIME 13.9 SECONDS (9.7-12.8)
[2019-12-22 18:40] LABS: PARTIAL THROMBOPLASTIN TIME 30.8 SECONDS (26.0-37.0)
[2019-12-22 18:50] LABS: PROLACTIN 21.3 ng/mL (3.7-17.9)
[2019-12-22 18:54] LABS: TROPONIN-I 0.072 ng/mL (0.000-0.035)
--- NOTE | 2019-12-22 19:36 | NUR ---
Patient is alert and oriented at time of admission with a standby asssit to ambulate. Dialysis nurse report that 1800mL fluid was extracted. Patient is a strong 2 assist at the moment post dialysis. Patient is resting on his bed at this time.
[2019-12-22 19:37] VITALS: BP 147/56; PULSE 102; TEMP 98.4
--- NOTE | 2019-12-22 20:00 | NUR ---
At time of assessment, patient is alert and oriented with no complaints of pain or chest discomfort. He does mention having a headache and neck stiffness. Heart sounds are normal/tachycardic, lungs clear, pulses 2+ radial and 1+ pedal. His abdomen is distended from prior abdominal surgery. His temperature is 101.9 at this time and 500 mg Tylenol is administered.
[2019-12-22 22:53] LABS: PH 5 (5-8); SQUAMOUS EPITHELIAL None Seen /hpf; URINE APPEARANCE Turbid; URINE BACTERIA Moderate /hpf; URINE BILIRUBIN Negative (NEGATIVE); URINE BLOOD 2+ (NEGATIVE); URINE COLOR Amber; URINE GLUCOSE Negative (NEGATIVE); URINE KETONE Negative (NEGATIVE); URINE LEUKOCYTE ESTERASE 2+ (NEGATIVE); URINE NITRATE Positive (NEGATIVE); URINE PROTEIN(semi-quant) 2+ (NEGATIVE); URINE RBC 20-50 /hpf; URINE WBC >50 /hpf
[2019-12-22 22:57] LABS: COLLECTION METHOD CLEAN CATCH
[2019-12-23] VITALS (714 sets, daily range): BP systolic 85–148; BP diastolic 33–100; PULSE 64–114; TEMP 98–101.5; O2SAT 83–97
--- NOTE | 2019-12-23 | NUR ---
At this time, this RN enters patient's room to initiate IV antbiotic therapy including 1 g Rocephin and 2 g Vancocin in 500 ml NS. After rocephin administration, patient requests to use the restroom. The mild tremors have returned but patient is assisted to the bathroom with gait belt and cane, as he states he feels like he needs to have a bowel movement. He urinates approx 20 ml of orange, clear urine and his bowel movement is loose and dark. He ambulates back to the bed and as this RN is attaching the Vanc to his IV, he has a coughing/sneezing fit and then acts as if he will vomit. The nurse turns around to grab an emesis bucket and when she faces the patient again, he has laid back in the bed and is not responsive. Pulses are still palpated but the patient is not answering questions or following commands. creative director Keila is called to the room, who calls a Cat call.
--- NOTE | 2019-12-23 00:05 | NUR ---
Cat call called by medical dry charge process attendantKeila. chemical supervisor, ICU charge, and RT to the room at this time. Patient is still unresponsive with a pulse. His vitals are this time are 121/100, HR 92, oxygen is now in the 80's; 2L O2 provided. 5 minutes later, vitals are 85/33, HR 98, oxygen 97% on 2L and temperature is 101.5. Dr. Mcgee is contacted and notified of the cat call. The decision is made to transfer patient to ICU at 0015.
--- NOTE | 2019-12-23 00:15 | NUR ---
Patient transfered to ICU room 6 and report given to GAS CHECK PAD MAKER Queta at this time.
--- NOTE | 2019-12-23 00:15 | NUR ---
RESPONDED TO CAT CALL, PRODUCT MANUFACTURING PROFESSIONAL EMERSON CALLED RT TO NOTIFY THEM OF CAT CALL UPSTAIRS. WENT AND ASSESSED PATIENT, NO RESPIRATORY ISSUES WERE NOTIFIED SPO2 WAS 96 ON 2L NC. PATIENT SEEMED TO BE STABLE, PREPARING HIM TO TRANSPORT TO ICU.
--- NOTE | 2019-12-23 00:16 | NUR ---
RESPONDED TO A CALL FROM EMERSON, FISH HATCHERY MAN, THAT THERE WAS A CAT CALL IN RM 314. I RESPONDED AND FOUND THE SITUATION TO BE UNDER CONTROL AND THE PATIENT WAS STABLE.
--- NOTE | 2019-12-23 00:17 | NUR ---
RECEIVED REPORT FROM REY VASQUES ON MEDICAL, AWAITING ARRIVAL OF PT TO ICU 6.
--- NOTE | 2019-12-23 00:20 | NUR ---
PT ARRIVES VIA STRETCHER ON PORTABLE PROP AND SCENERY MAKER ON 2L VIA NC, ACCOMPANIED BY BRICK CHIMNEY BUILDER, RN AND RT. PT TRANSFERRED TO ICU BED AND PLACED ON BEDSIDE CONTINUOUS MONITOR. PT IS RESPONSIVE BUT DOES APPEAR VERY DROWSY. PT IS ABLE TO ANSWER ALL QUESTIONS APPROPRAITELY AND FOLLOW SIMPLE COMMANDS. WEAKNESS NOTED IN ALL EXTREMETIES. NOTED PT TO HAVE INTERMITENT TREMORS BUT IS AAOX3 WHILE THEY ARE HAPPENING. EXPLAINED TO PT ABOUT TRANSFER TO ICU, CALL LIGHT SYSTEM, EXTERNAL CATHETER PLACEMENT, AND ICE PACKS IN ARMPITS TO HELP BRING FEVER DOWN, PT VERBALIZED UNDERSTANDING. PT APPEARS VERY SLEEPY NOW. PERSONAL BELONGINGS BROUGHT DOWN WITH PT AND PLACED IN ROOM CLOSET, INCLUDING HIS WALLET. PT'S GLASSES AND DENTURES ARE PLACED ON COUNTER.
--- NOTE | 2019-12-23 00:51 | NUR ---
SPOKE WITH [facility] PHYSICIAN TO UPDATE HIM ON PT'S TRANSFER AND CURRENT STATUS. PHYSICIAN MADE AWARE OF BP IN THE 80s AND FEVER 100.5 ORALLY. NO NEW ORDERS AT THIS TIME. WILL MONITOR CLOSELY.
--- NOTE | 2019-12-23 01:18 | NUR ---
[facility] BEDSIDE NURSE ON SCREEN, NOTIFIES RN THAT SHE SEES THE LOW BP AND HAS LET DR SÁNCHEZ KNOW, AWAITING ORDERS.
[2019-12-23 02:31] LABS: BASO % 0.2 % (0.0-2.0); EOS % 0.1 % (0-4.0); GRAN # 18.2 (1.4-6.5); GRAN % 88.7 % (42.2-75.2); HEMATOCRIT 37.9 % (42.0-52.0); HEMOGLOBIN 12.1 g/dl (13.5-18.0); LYMPH # 1.2 (1.2-3.4); LYMPH % 5.8 % (20.0-51.0); MEAN CELL VOLUME 100 fl (80.0-100.0); MEAN CORPUSCULAR HEMOGLOBIN 32 pg (27.0-31.0); MEAN CORPUSCULAR HGB CONC 32 g/dl (33.0-37.0); MEAN PLATELET VOLUME 12.2 fl (7.4-10.4); MONO # 0.9 (0.1-0.6); MONO % 4.3 % (1.7-9.3); PLATELET COUNT 87 K/mm3 (130-400); RED BLOOD COUNT 3.79 M/mm3 (4.20-5.60); REDCELL DISTRIBUTION WIDTH-CV 13.8 % (11.5-14.5)
[2019-12-23 02:34] LABS: CALCIUM 7.9 mg/dL (8.4-10.2); CREATININE, serum 5.4 (0.66-1.25); POTASSIUM 4.3 mmol/L (3.4-5.0)
--- NOTE | 2019-12-23 03:10 | NUR ---
DR KNOX WITH [facility], NOTIFIED OF WBC, TROPONIN TREND, AND LA. NO NEW ORDERS.
--- NOTE | 2019-12-23 05:18 | NUR ---
SPOKE WITH DR KNOX WITH [facility] ABOUT PT'S BP HIGH 80S-LOW 90s AFTER BOLUS. NEW ORDERS FOR ANOTHER LITER OF NS BOLUS. PT AROUSING MORE NOW AND ASKIGN QUESTIONS. PT DOES NOT REMEMBER COMING DOWN TO THE ICU OR WHAT HAPPENED. PT APPEARS TO BE MORE ALERT AT THIS TIME.
--- NOTE | 2019-12-23 06:34 | NUR ---
Vancomycin Initial Dosing Pharmacy Note Ordering provider: Alex Hughes MD Indication/duration: Fever of Unknown Origin Relevant comorbidities: HD LABS: SCr > 5, WBC 20.5, Urine WBC>50 Recommendation: Loading dose: 2 grams given 12/22/19 @ 23:50 Maintenance dose: Will be dependent upon in-patient dialysis schedule. Random level will be drawn prior to next HD session. Trough goal: 15-20 ug/mL Will continue to follow.
--- NOTE | 2019-12-23 07:30 | NUR ---
SPOKE WITH GORDY, DAUGHTER AND UPDATED ON PT'S STATUS AND ABOUT TRANSFER TO ICU LAST NIGHT.
--- NOTE | 2019-12-23 10:27 | NUR ---
Pt returned from xavier scan and Dr Wilde in to see pt at this time.
--- NOTE | 2019-12-23 11:57 | NUR ---
The patient is on contact precautions for C.diff. SW contacted the patient's room phone to discuss discharge plan. The patient's , Gilma (h.ph#[phone], c.ph#[phone]), answered. The patient lives in [place] with his . Gilma reports that the patient has been independent with ADLs and has a cane and walker. He does home dialysis that his assists him with. The patient's PCP is Dr. Dheeraj Nix and he receives his medications at [facility]. Gilma reports no difficulties obtaining his meds. The patient's advanced directives are in EMR. His DPOA-HC is his . Gilma reports no concerns with the patient returning home with her upon discharge. NOMI asked Erlinda RN with Dr. Mcgee, for PT to be ordered. SW to continue to follow.
--- NOTE | 2019-12-23 19:14 | NUR ---
Report given to Maria C LE and care transfered.
--- NOTE | 2019-12-23 19:40 | NUR ---
REPORT GIVEN TO MCKENZIE ON THE FLOOR, TRASNFERRING PT TO 314. ATTEMPTED TO CALL AND GORDY DAUGHTER ABOUT TRANSFER, UNSUCCESSFUL. WILL TRY AGAIN LATER.
--- NOTE | 2019-12-23 20:00 | NUR ---
ANGELIC, NOTIFIED OF TRANSFER
--- NOTE | 2019-12-23 20:40 | NUR ---
Pt transferred from ICU to medical floor- pt was in the bathroom when entered the room- reminded pt we needed a stool specimen but pt states too late - he already flushed--informed we will collect it with next stool- pt aware. Alert/oriented- wants to sit in the chair and play cards-- states has a slight headache 2/10 but does not want any meds at this time- VSS, understands to call for assistance up to bathroom- is steady on feet--
[2019-12-24 00:31] VITALS: BP 136/50; PULSE 77; TEMP 98.1
[2019-12-24 04:54] VITALS: BP 144/56; PULSE 65; TEMP 97.6
--- NOTE | 2019-12-24 06:47 | NUR ---
Quiet night-- was up in the chair for a few hours around NC-- VSS, no requests during the night-- Up to bathroom-is steady on feet
[2019-12-24 07:54] VITALS: BP 154/50; PULSE 67; TEMP 97.6
--- NOTE | 2019-12-24 08:02 | NUR ---
Patient is going to dialysis a this time
[2019-12-24 08:09] LABS: BASO % 0.2 % (0.0-2.0); GRAN # 14.4 (1.4-6.5); LYMPH # 1.1 (1.2-3.4); LYMPH % 6.8 % (20.0-51.0); MEAN CELL VOLUME 99 fl (80.0-100.0); MEAN CORPUSCULAR HGB CONC 31 g/dl (33.0-37.0); MEAN PLATELET VOLUME 12.7 fl (7.4-10.4); MONO # 0.9 (0.1-0.6); MONO % 5.1 % (1.7-9.3); PLATELET COUNT 58 K/mm3 (130-400); RED BLOOD COUNT 3.24 M/mm3 (4.20-5.60); REDCELL DISTRIBUTION WIDTH-CV 13.6 % (11.5-14.5)
[2019-12-24 08:10] LABS: HEMATOCRIT 32.2 % (42.0-52.0); HEMOGLOBIN 10.1 g/dl (13.5-18.0); MEAN CORPUSCULAR HEMOGLOBIN 31 pg (27.0-31.0)
[2019-12-24 08:24] LABS: ALBUMIN 3.5 gm/dL (3.5-5.0); CALCIUM 8.1 mg/dL (8.4-10.2); CREATININE, serum 7.69 (0.66-1.25); PHOSPHOROUS 8.2 mg/dL (2.5-4.5); POTASSIUM 4.8 mmol/L (3.4-5.0)
--- NOTE | 2019-12-24 08:30 | NUR ---
Assessment completed, alert/oriented, vital signs stable, denies pain, no issues or events over night, heart RRR/ distal pulses are palapble, lungs CTA/ no resp.difficulty noted, patient has eaten breafast and is now being transferred to dialysis by wheelchair
--- NOTE | 2019-12-24 11:23 | NUR ---
Ice Maker collaborated with REY Zarate who reports patient has been up and independent in his room. SW will continue to follow.
[2019-12-24 12:26] VITALS: BP 127/59; PULSE 71; TEMP 97.5
[2019-12-24 15:47] VITALS: BP 127/41; PULSE 63; TEMP 98
[2019-12-24 20:00] VITALS: BP 142/48; PULSE 74; TEMP 98.1
[2019-12-25 00:18] VITALS: BP 157/52; PULSE 69; TEMP 98
--- NOTE | 2019-12-25 03:48 | NUR ---
Per Dr Mcgee the frequency was changed on Pt's regular insulin on the medication reconciliation so as to not state "see instructions" and to instead reflect the actual times of administration.
[2019-12-25 04:26] VITALS: BP 130/47; PULSE 62; TEMP 98.1
--- NOTE | 2019-12-25 04:39 | NUR ---
Pt HAS HAD A QUIET AND PEACEFUL SHIFT AND HAS HAD NO EXPRESSED WANTS/NEEDS OR COMPLAINTS. Pt HAS RMEAINED PAIN FREE DURING THE SHIFT. Pt'S DAUGHTER CALLED THIS SENIOR ELECTRICAL CONTROLS ENGINEER JUST AFTER SHIFT CHANGE AND STATED THAT Pt WAS SOA ON THE PHONE AND "NEEDS TO BE PUT ON OXYGEN". THIS SENIOR ELECTRICAL CONTROLS ENGINEER STATED HE WOUDL GO CHECK ON THE Pt, THAT THERE IS NO ORDER FOR O2 AT THIS TIME, BUT THIS SENIOR ELECTRICAL CONTROLS ENGINEER WILL PUT Pt ON O2 IF REQUIRED. UPON ASSESSING Pt O2 SATS IT IS NOTED TO BE 97% ON ROOM AIR AND Pt STATES "I TOLD HER NOT TO CALL!". Pt HAS BEEN INDEPENDENT IN HIS ROOM AND IS ABLE TO MANAGE TOILETING WITHOUT ASSISTANCE. Pt TRANSFERS FROM CHAIR TO FEET WITHOUT DIFFICULTY AND NO S/S OF BALANCE LOSS. CALL LIGHT IS AT Pt SIDE, BEVERAGE IS ON Pt BEDSIDE TABLE. NO S/S OF DISTRESS NOTED. Pt REMAINS A&OX4.
--- NOTE | 2019-12-25 06:29 | NUR ---
Pt RESTING IN BED PEACEFULLY AT THIS TIME WITH NO S/S OF DISTRESS NOTED. CALL LIGHT AND BEVERAGE WITHIN REACH. WILL CONTINUE TO MONITOR.
[2019-12-25 07:37] VITALS: BP 130/48; PULSE 66; TEMP 98
--- NOTE | 2019-12-25 08:00 | NUR ---
PATIENT IS AWAKE AND ALERT IN THE ROOM, HAS A STEADY GAIT, HAS NOT BEEN USING HIS CANE. STATES THAT HE ONLY USES IT OCCASIONALLY BUT HAS NOT FOR A COUPLE DAYS. HE DENIES HAVING ANY PAIN. STATES HE IS READY TO GO HOME. CALL LIGHT AND PERSONAL ITEMS ARE WITHIN REACH.
[2019-12-25 08:24] LABS: BASO % 0.1 % (0.0-2.0); EOS % 0.1 % (0-4.0); GRAN # 13.7 (1.4-6.5); GRAN % 83.7 % (42.2-75.2); HEMATOCRIT 31.1 % (42.0-52.0); HEMOGLOBIN 9.8 g/dl (13.5-18.0); LYMPH # 1.2 (1.2-3.4); LYMPH % 7.3 % (20.0-51.0); MEAN CELL VOLUME 99 fl (80.0-100.0); MEAN CORPUSCULAR HEMOGLOBIN 31 pg (27.0-31.0); MEAN CORPUSCULAR HGB CONC 32 g/dl (33.0-37.0); MEAN PLATELET VOLUME 12.8 fl (7.4-10.4); MONO # 1.3 (0.1-0.6); MONO % 8.1 % (1.7-9.3); PLATELET COUNT 72 K/mm3 (130-400); RED BLOOD COUNT 3.14 M/mm3 (4.20-5.60); REDCELL DISTRIBUTION WIDTH-CV 13.3 % (11.5-14.5)
[2019-12-25 08:49] LABS: ALBUMIN 3.5 gm/dL (3.5-5.0); CALCIUM 8.2 mg/dL (8.4-10.2); CREATININE, serum 5.9 (0.66-1.25); PHOSPHOROUS 5.8 mg/dL (2.5-4.5); POTASSIUM 4.5 mmol/L (3.4-5.0)
[2019-12-25 12:11] VITALS: BP 136/54; PULSE 65; TEMP 98.8
[2019-12-25 16:22] VITALS: BP 136/56; PULSE 68; TEMP 98.2
[2019-12-25 19:29] VITALS: BP 185/46; PULSE 68; TEMP 98
--- NOTE | 2019-12-25 19:43 | NUR ---
REPORT GIVEN TO ONCOMING SHIFT.
--- NOTE | 2019-12-25 20:00 | NUR ---
Pt sitting up in the chair at this time playing a card game. Denies pain. Assessment completed and documented. Pt alert and oriented x4. Fistual to RUE free of complications. INT to left wrist patent and free of complications. Pt denies any other needs at this time. Call light within reach. Will continue to monitor.
[2019-12-26 00:33] VITALS: BP 166/43; PULSE 66; TEMP 99.4
[2019-12-26 01:43] VITALS: BP 156/54
[2019-12-26 04:11] VITALS: BP 158/48; PULSE 70; TEMP 99.5
--- NOTE | 2019-12-26 05:20 | NUR ---
Pt up and down from bed to chair for most of the night. Complaints of pain to head once during shift in which PRN tylenol was given per orders. INT to left forearm without complications. Fistula to RUE without complications. Pt denies any other needs at this time. Call light within reach. Will conitnue to monitor.
[2019-12-26 06:23] LABS: BASO % 0.2 % (0.0-2.0); EOS # 0.1 (0.0-0.7); EOS % 0.8 % (0-4.0); GRAN # 8.5 (1.4-6.5); GRAN % 75.1 % (42.2-75.2); LYMPH # 1.4 (1.2-3.4); LYMPH % 12.3 % (20.0-51.0); MEAN CELL VOLUME 96 fl (80.0-100.0); MEAN CORPUSCULAR HGB CONC 33 g/dl (33.0-37.0); MEAN PLATELET VOLUME 12.4 fl (7.4-10.4); MONO # 1.2 (0.1-0.6); MONO % 10.4 % (1.7-9.3); PLATELET COUNT 70 K/mm3 (130-400); RED BLOOD COUNT 2.91 M/mm3 (4.20-5.60); REDCELL DISTRIBUTION WIDTH-CV 13.2 % (11.5-14.5)
[2019-12-26 06:29] LABS: HEMOGLOBIN 9.1 g/dl (13.5-18.0); MEAN CORPUSCULAR HEMOGLOBIN 31 pg (27.0-31.0)
[2019-12-26 06:36] LABS: ALBUMIN 3.1 gm/dL (3.5-5.0); CALCIUM 7.7 mg/dL (8.4-10.2); CREATININE, serum 6.82 (0.66-1.25)
[2019-12-26 07:00] VITALS: BP 134/53; PULSE 64; TEMP 97.7
--- NOTE | 2019-12-26 07:24 | NUR ---
Report given to REY Wu
--- NOTE | 2019-12-26 10:13 | NUR ---
Patient was resting in bed while receiving bedside report, eyes were closed but opened to voice. He is alert and oriented. Received call from Stephanie in dialysis at 0800 who was ready for patient to come for treatment. Breakfast was brought and patient was able to take medications and eat breakfast prior to treatment. Is currently receiving dialysis treatment.
[2019-12-26] MEDS ORDERED: LEVAQUIN 750MG750 M1 PO (10:31)
--- NOTE | 2019-12-26 12:02 | NUR ---
Drywall Professional met with patient who will discharge today. Patient reports no concerns in returning home. SW read IM form aloud to patient who verbalized understanding then provided verbal consent as signature. SW placed form in chart and provided copy to patient. No additional needs at this time.
--- NOTE | 2019-12-26 13:45 | NUR ---
Patient discharged home at 1310. Family here to pick patient up at ER entrance. Was assisted to private vehicle via wheelchair. Personal belongings sent with patient. Verbalized understanding of instructions.
== END 2019-12-26 13:10 | disposition home or self-care (01) | DRG 871 ==
LOC: MEDICAL 08:37 → PEDS 11:00 → MEDICAL 13:48 → ICU 12-23 00:19 → MEDICAL 12-23 20:10
PROVIDERS: Internal Medicine Adult Congenital Heart Disease; Internal Medicine Pulmonary Disease; ADMIT Internal Medicine Nephrology
PROC: 5A1D70Z Performance of Urinary Filtration, Intermittent, Less than 6 Hours Per Day (ICD-10-PCS; principal; 2019-12-22)
DX: A41.51 Sepsis due to Escherichia coli [E. coli] (principal); N18.6 End stage renal disease; I12.0 Hypertensive chronic kidney disease with stage 5 chronic kidney disease or end stage renal disease; N25.81 Secondary hyperparathyroidism of renal origin; N39.0 Urinary tract infection, site not specified; I25.10 Atherosclerotic heart disease of native coronary artery without angina pectoris; Z95.1 Presence of aortocoronary bypass graft; Z85.51 Personal history of malignant neoplasm of bladder; E66.9 Obesity, unspecified; E11.22 Type 2 diabetes mellitus with diabetic chronic kidney disease; N40.0 Benign prostatic hyperplasia without lower urinary tract symptoms; E78.5 Hyperlipidemia, unspecified; F17.210 Nicotine dependence, cigarettes, uncomplicated; D63.1 Anemia in chronic kidney disease; K74.60 Unspecified cirrhosis of liver; E87.5 Hyperkalemia; E11.42 Type 2 diabetes mellitus with diabetic polyneuropathy; G47.30 Sleep apnea, unspecified; R31.0 Gross hematuria; Z79.4 Long term (current) use of insulin; Z79.01 Long term (current) use of anticoagulants; Z88.0 Allergy status to penicillin; Z88.1 Allergy status to other antibiotic agents; Z88.2 Allergy status to sulfonamides; Z99.2 Dependence on renal dialysis; Z68.37 Body mass index [BMI] 37.0-37.9, adult
CPT/HCPCS: A9500; J0696; J1644; J1815; J2785; J2916; J3370; J7030; J7040

== ENCOUNTER 2020-02-16 22:42 | Inpatient (IN) | payer MEDICARE ==
[~2020-02-16] VITALS: Ht 160 cm; Wt 83.2 kg
[~2020-02-16 22:42] MED LIST changes: +LEVAQUIN 750MG750 M1 PO
[2020-02-17] VITALS (8 sets, daily range): BP systolic 153–202; BP diastolic 55–70; PULSE 62–76; TEMP 97.8–98.4
--- NOTE | 2020-02-17 00:45 | NUR ---
Pt. arrived to the floor via ice EMS. Pt. is A&OX3, assessment complete. INT to lt. ac patent. AV fistula noted to rt. arm, strong thrill noted. Pt. denies pain or other needs, call light within reach.
[2020-02-17] MEDS ORDERED: APRESOLINE 25MG25 MG PO (02:52)
[2020-02-17] MEDS ORDERED: NITRO-DUR0.1 MG/PAT TD (02:59)
[2020-02-17] MEDS ORDERED: COUMADIN 2MG2 MG/TAB PO (03:02)
[2020-02-17] MEDS ORDERED: REQUIP0.25 MG PO (03:02)
[2020-02-17] MEDS ORDERED: AURYXIA1 GM PO (03:04)
[2020-02-17] MEDS ORDERED: LANTUS SOLOS100 U/ML SQ (03:06)
[2020-02-17] MEDS ORDERED: ZESTRIL2.5 MG PO (03:07)
[2020-02-17 09:29] LABS: ALBUMIN 3.7 gm/dL (3.5-5.0); CALCIUM 7.9 mg/dL (8.4-10.2); CREATININE, serum 5.22 (0.66-1.25); POTASSIUM 5.3 mmol/L (3.4-5.0)
--- NOTE | 2020-02-17 09:46 | NUR ---
Patient alert and oriented, answers questions appropriately. Abdomen soft, non tender, non distended. Bowel sounds active x4 quads. +Flatus. No c/o abdominal pain or pressure. Questions if he will discharge to home today. No other c/o at this time.
[2020-02-17 09:58] LABS: BASO % 0.4 % (0.0-2.0); EOS # 0.1 (0.0-0.7); EOS % 3.1 % (0-4.0); GRAN # 3.2 (1.4-6.5); GRAN % 70.5 % (42.2-75.2); LYMPH # 0.9 (1.2-3.4); LYMPH % 19.7 % (20.0-51.0); MEAN CELL VOLUME 100 fl (80.0-100.0); MEAN CORPUSCULAR HEMOGLOBIN 32 pg (27.0-31.0); MEAN CORPUSCULAR HGB CONC 32 g/dl (33.0-37.0); MONO # 0.3 (0.1-0.6); MONO % 6.1 % (1.7-9.3); PLATELET COUNT 51 K/mm3 (130-400); RED BLOOD COUNT 3.47 M/mm3 (4.20-5.60); REDCELL DISTRIBUTION WIDTH-CV 13.5 % (11.5-14.5)
[2020-02-17 10:01] LABS: HEMATOCRIT 34.6 % (42.0-52.0)
--- NOTE | 2020-02-17 11:39 | NUR ---
Machine I Coremaker met with patient and patient's , Gilma (ph#[phone]) to discuss discharge planning. Patient lives in [place] and sees Dr. Nix for primary care. Patient obtains medications from [facility] with no difficulties. Patient has a CPAP, canes and also does dialysis at home. Patient reports he is independent with ADLS and plans to return home upon discharge. Patient has Advance Directives in EMR which designate his Gilma as primary and his daughters Chen and Stephanie as alternates. SW will continue to follow as needed.
--- NOTE | 2020-02-17 13:52 | NUR ---
Initial visit; Independent Freight Agent stopped in to say hello to a patient she has seen on previous visits. Patient is Pentecostalism and is doing well spiritually and hopefully improving physcally.
--- NOTE | 2020-02-17 21:00 | NUR ---
Pt. sitting up in chair at this time. Pt. is A&OX3, assessment complete. INT to lt. ac patent. AV fistula noted to rt. arm. Pt. denies pain or other needs, call light within reach.
[2020-02-18 04:33] VITALS: BP 176/53; PULSE 64; TEMP 97.7
[2020-02-18 07:50] VITALS: BP 171/57; PULSE 84; TEMP 97.6
--- NOTE | 2020-02-18 09:21 | NUR ---
PATIENT GIVEN TYLENOL AT THIS TIME FOR BACK PAIN. MORNING SHIFT ASSESSMENT COMPLETE. PATIENT DENIES ANY NEEDS AT THIS TIME.
[2020-02-18 11:25] VITALS: BP 172/53; PULSE 86; TEMP 97.7
[2020-02-18 12:17] LABS: BASO % 0.5 % (0.0-2.0); EOS # 0.2 (0.0-0.7); EOS % 2.7 % (0-4.0); GRAN # 4.1 (1.4-6.5); GRAN % 69.6 % (42.2-75.2); HEMATOCRIT 37.2 % (42.0-52.0); LYMPH # 1.2 (1.2-3.4); LYMPH % 20.6 % (20.0-51.0); MEAN CELL VOLUME 99 fl (80.0-100.0); MEAN CORPUSCULAR HEMOGLOBIN 32 pg (27.0-31.0); MEAN CORPUSCULAR HGB CONC 32 g/dl (33.0-37.0); MONO # 0.4 (0.1-0.6); MONO % 6.3 % (1.7-9.3); PLATELET COUNT 62 K/mm3 (130-400); RED BLOOD COUNT 3.75 M/mm3 (4.20-5.60); REDCELL DISTRIBUTION WIDTH-CV 13.6 % (11.5-14.5)
[2020-02-18 12:27] LABS: ALBUMIN 4.1 gm/dL (3.5-5.0); CALCIUM 8.3 mg/dL (8.4-10.2); CREATININE, serum 5.14 (0.66-1.25); PHOSPHOROUS 5.1 mg/dL (2.5-4.5); POTASSIUM 4.6 mmol/L (3.4-5.0)
--- NOTE | 2020-02-18 13:20 | NUR ---
DR. JAUREGUI CALLED. THIS NURSE MADE AWARE THAT SHE WILL NOT BE DOING A SCOPE ON THE PATIENT TODAY SINCE HE HAS EATEN. DR. JAUREGUI WILL BE BY LATER FOR THE GI CONSULT AFTER HER CLINIC HOURS. DR. ROQUE CALLED AND NOTIFIED. TORB TO HOLD PATIENTS HS LEVEMIR, AND TO START THE PATIENT ON A MID-SLIDING SCALE NOVOLOG ACHS FOR TODAY FROM TO THIS NURSE.
--- NOTE | 2020-02-18 13:22 | NUR ---
Follow-up; Patient doing well and states he appreciates Ophthalmic Asst checking-up on him.
[2020-02-18 16:10] VITALS: BP 156/55; PULSE 70; TEMP 97.6
--- NOTE | 2020-02-18 18:07 | NUR ---
ANESTHESIA PAGED AND NOTIFIED OF CONSULT FOR EGD AND COLONOSCOPY FOR TOMORROW. NO ORDERS GIVEN AT THIS TIME.
--- NOTE | 2020-02-18 18:11 | NUR ---
PATIENT CONSENT FORM SIGNED AND ON PATIENT CHART FOR EGD AND COLONOSCOPY TOMORROW.
[2020-02-18 18:13] LABS: INR 1.1 (0.8-3.0); PROTHROMBIN TIME 12.8 SECONDS (9.7-12.8)
--- NOTE | 2020-02-18 18:30 | NUR ---
CALLED AND MESSAGE LEFT. PATIENTS PT AND INR LABS ARE WITHIN NORMAL RANGE.
[2020-02-18 19:26] VITALS: BP 177/55; PULSE 72; TEMP 97.6
[2020-02-18 23:19] VITALS: BP 140/43; PULSE 66; TEMP 98.1
[2020-02-19] VITALS (9 sets, daily range): BP systolic 98–136; BP diastolic 36–51; PULSE 60–96; TEMP 97.5–97.9
--- NOTE | 2020-02-19 07:05 | NUR ---
Pt resting in bed. Pt stools are clear. Pt has had no complaints of pain. Pt has his call light within reach. Reported off to REY Tineo. Pt was able to drink a little over a liter of the bowel prep.
--- NOTE | 2020-02-19 07:20 | NUR ---
Sitting up in chair. Denies pain. Says he is ready to get his procedure done. Completed bowel prep last night and says that his stools are clear liquid at this time. Patient is aware that he will have dialysis after his procedure today. Denies needs at this time.
[2020-02-19 07:34] LABS: BASO % 0.4 % (0.0-2.0); EOS # 0.1 (0.0-0.7); EOS % 2.6 % (0-4.0); GRAN # 3.3 (1.4-6.5); GRAN % 66.5 % (42.2-75.2); HEMOGLOBIN 10.3 g/dl (13.5-18.0); LYMPH # 1.1 (1.2-3.4); LYMPH % 22.8 % (20.0-51.0); MEAN CELL VOLUME 99 fl (80.0-100.0); MEAN CORPUSCULAR HEMOGLOBIN 31 pg (27.0-31.0); MEAN CORPUSCULAR HGB CONC 32 g/dl (33.0-37.0); MONO # 0.4 (0.1-0.6); MONO % 7.5 % (1.7-9.3); PLATELET COUNT 59 K/mm3 (130-400); RED BLOOD COUNT 3.29 M/mm3 (4.20-5.60); REDCELL DISTRIBUTION WIDTH-CV 13.5 % (11.5-14.5)
[2020-02-19 07:38] LABS: HEMATOCRIT 32.7 % (42.0-52.0)
[2020-02-19 07:42] LABS: IRON,SERUM 96 ug/dL (35-150)
[2020-02-19 07:43] LABS: ALBUMIN 3.5 gm/dL (3.5-5.0); BILIRUBIN,TOTAL 0.8 mg/dL (0.0-1.0); CALCIUM 8.1 mg/dL (8.4-10.2); CREATININE, serum 5.79 (0.66-1.25); PHOSPHOROUS 6.6 mg/dL (2.5-4.5)
[2020-02-19 07:52] LABS: TOTAL IRON BINDING CAPACITY 278 ug/dL (261-462)
--- NOTE | 2020-02-19 09:27 | NUR ---
Patient having headache and would like Tylenol. Administer Tylenol as prescribed. Sitting up in chair talking with . Denies any additional needs.
--- NOTE | 2020-02-19 10:17 | NUR ---
Patient to endoscopy via bed at this time.
--- NOTE | 2020-02-19 11:35 | NUR ---
Patient to room via cart from endoscopy. Patient is alert and oriented. Ambulates from cart to bathroom. Gets in bed. with patient in room. Denies pain. Provided with belem crackers and apple juice. Denies additional needs.
--- NOTE | 2020-02-19 12:14 | NUR ---
Patient ambulates to dialysis at this time. Gait slow and steady.
--- NOTE | 2020-02-19 15:06 | NUR ---
Dialysis complete. Patient ambulates back to room. Denies additional needs.
--- NOTE | 2020-02-19 17:56 | NUR ---
Sitting up in chair watching TV. Denies pain or needs at this time.
--- NOTE | 2020-02-19 19:01 | NUR ---
Received report from REY Tineo. Pt currently resting in bed and has his call light within reach. Pt stated that he does not have any concerns at this time.
[2020-02-20 00:15] VITALS: BP 115/44
--- NOTE | 2020-02-20 03:13 | NUR ---
Pt just got up and went to the restroom. Pt has no complained of pain during this shift. Pt blood pressures were kind of low at the beginning of the shift but have improved. Pt blood pressure medications were held due to low blood pressure reading and the pt was nervous about his blood pressure reading being so low. Pt is currently in bed and has his calll light within reach.
[2020-02-20 04:20] VITALS: BP 113/43; PULSE 64; TEMP 97.5
--- NOTE | 2020-02-20 07:00 | NUR ---
Pt up and getting dressed. pt has his call light within reach. Reported off to REY Javier.
--- NOTE | 2020-02-20 08:00 | NUR ---
PATIENT IS A&O AND STANDING AT SINK GETTING READY FOR THE DAY. PATIENT PLANNING ON DISCHARGING HOME LATER TODAY. VSS. REQUESTING TYLENOL FOR BACK ACHE. AM MEDS GIVEN. HEAD TO TOE ASSESSMENT WNL. LEFT AC IV TO INT. 1500CC FR. RENAL DIET. NO C/O N/V. RIGHT ARM FISTULA WITH GOOD BRUIT & THRILL. NO OTHER NEEDS. CALL LIGHT IN REACH.
[2020-02-20 08:15] VITALS: BP 122/47; PULSE 91; TEMP 97.8
--- NOTE | 2020-02-20 10:00 | NUR ---
PATIENT GOING TO DIALYSIS
--- NOTE | 2020-02-20 10:01 | NUR ---
Truck Repair Supervisor met with patient to review discharge plan. Patient has been independent in his room and states he is ready to get home. No additional needs at this time.
[2020-02-20] MEDS ORDERED: PROTONIX 40MG T40 MG PO (10:25)
[2020-02-20 10:45] LABS: CALCIUM 8.1 mg/dL (8.4-10.2); CREATININE, serum 6.02 (0.66-1.25); PHOSPHOROUS 6.4 mg/dL (2.5-4.5); POTASSIUM 4.8 mmol/L (3.4-5.0)
[2020-02-20 11:07] LABS: BASO % 0.4 % (0.0-2.0); EOS # 0.1 (0.0-0.7); EOS % 2.1 % (0-4.0); GRAN # 3.7 (1.4-6.5); GRAN % 71.2 % (42.2-75.2); HEMOGLOBIN 10.5 g/dl (13.5-18.0); LYMPH # 1.1 (1.2-3.4); LYMPH % 21.6 % (20.0-51.0); MEAN CELL VOLUME 99 fl (80.0-100.0); MEAN CORPUSCULAR HEMOGLOBIN 32 pg (27.0-31.0); MEAN CORPUSCULAR HGB CONC 33 g/dl (33.0-37.0); MEAN PLATELET VOLUME 12.8 fl (7.4-10.4); MONO # 0.2 (0.1-0.6); MONO % 4.5 % (1.7-9.3); PLATELET COUNT 56 K/mm3 (130-400); RED BLOOD COUNT 3.27 M/mm3 (4.20-5.60); REDCELL DISTRIBUTION WIDTH-CV 13.4 % (11.5-14.5)
[2020-02-20 11:12] LABS: HEMATOCRIT 32.3 % (42.0-52.0)
[2020-02-20 11:40] VITALS: BP 106/53; PULSE 90; TEMP 97.6
--- NOTE | 2020-02-20 14:30 | NUR ---
PATIENT DISCHARGING HOME VIA WC TO PERSONAL VEHICLE WITH . GAVE DISCHARGE INSTRUCTIONS AND ANSWERED QUESTIONS. DC'D IV SITE AND COVERED WITH GAUZE [employer] COBAN. TELE DC'D. PATIENT DRESSED AND PACKED FOR DISCHARGE.
== END 2020-02-20 14:25 | disposition home or self-care (01) | DRG 377 ==
LOC: MEDICAL 22:42 → SURG 23:50
PROVIDERS: Internal Medicine Gastroenterology; ADMIT Internal Medicine Nephrology
PROC: 5A1D70Z Performance of Urinary Filtration, Intermittent, Less than 6 Hours Per Day (ICD-10-PCS; 2020-02-17)
PROC: 0DB98ZZ Excision of Duodenum, Via Natural or Artificial Opening Endoscopic (ICD-10-PCS; 2020-02-19)
PROC: 0DBP8ZX Excision of Rectum, Via Natural or Artificial Opening Endoscopic, Diagnostic (ICD-10-PCS; principal; 2020-02-19 10:30)
PROC: 0DB68ZX Excision of Stomach, Via Natural or Artificial Opening Endoscopic, Diagnostic (ICD-10-PCS; 2020-02-19 10:30)
DX: K29.31 Chronic superficial gastritis with bleeding (principal); N18.6 End stage renal disease; I12.0 Hypertensive chronic kidney disease with stage 5 chronic kidney disease or end stage renal disease; K62.1 Rectal polyp; K31.7 Polyp of stomach and duodenum; K74.60 Unspecified cirrhosis of liver; C67.9 Malignant neoplasm of bladder, unspecified; E11.22 Type 2 diabetes mellitus with diabetic chronic kidney disease; D63.1 Anemia in chronic kidney disease; E21.3 Hyperparathyroidism, unspecified; I25.10 Atherosclerotic heart disease of native coronary artery without angina pectoris; D50.0 Iron deficiency anemia secondary to blood loss (chronic); G47.33 Obstructive sleep apnea (adult) (pediatric); D69.6 Thrombocytopenia, unspecified; E66.9 Obesity, unspecified; E78.5 Hyperlipidemia, unspecified; Z79.4 Long term (current) use of insulin; Z79.01 Long term (current) use of anticoagulants; Z95.2 Presence of prosthetic heart valve; Z95.0 Presence of cardiac pacemaker; Z95.1 Presence of aortocoronary bypass graft; Z88.0 Allergy status to penicillin; Z88.2 Allergy status to sulfonamides; Z88.1 Allergy status to other antibiotic agents; Z85.038 Personal history of other malignant neoplasm of large intestine; Z87.891 Personal history of nicotine dependence
CPT/HCPCS: J1644; J1815; J2704; J7030

== ENCOUNTER 2020-07-26 17:46 | Inpatient (IN) | payer MEDICARE ==
[~2020-07-26] VITALS: Ht 160 cm; Wt 82.9 kg
[~2020-07-26 17:46] MED LIST changes: +AURYXIA1 GM PO; +NITRO-DUR0.1 MG/PAT PO; +PROTONIX 40MG T40 MG PO; +REQUIP0.25 MG PO; +ZESTRIL2.5 MG PO
[2020-07-26 19:36] VITALS: BP 149/53; PULSE 61; TEMP 97.7
--- NOTE | 2020-07-26 20:00 | NUR ---
PATIENT ARRIVED VIA EMS. PATIENT WALKED OVER AND SAT DOWN IN CHAIR. PATIENT ORIENTED TO ROOM. ADMISSION PAPERWORK COMPLETE. MED REC COMPLETE. PATIENT REQUESTED WATER AND SOME FOOD. NO COMPLAINTS OF PAIN. PATIENT HAS NO OTHER NEEDS AT THIS TIME. ENCOURAGED PATIENT TO CALL IF HE NEEDED ANYTHING. CALL LIGHT IN REACH.
[2020-07-26] MEDS ORDERED: PHOS LO (20:26)
[2020-07-26] MEDS ORDERED: NORVASC 5MG5 MG/TAB PO (20:28)
[2020-07-26] MEDS ORDERED: KENALOG DENTAL P5 GM DT (20:29)
[2020-07-27] VITALS (7 sets, daily range): BP systolic 126–157; BP diastolic 33–69; PULSE 66–76; TEMP 97.4–98.6
--- NOTE | 2020-07-27 06:35 | NUR ---
appears to be sleeping, bedside shift report received from REY Carcamo
--- NOTE | 2020-07-27 07:30 | NUR ---
resting in bed, full assessment completed, see interventions for further info
--- NOTE | 2020-07-27 08:00 | NUR ---
sitting up inchair eating marcelina
--- NOTE | 2020-07-27 08:40 | NUR ---
to dialysis per WC
[2020-07-27 09:19] LABS: ALBUMIN 3.7 gm/dL (3.5-5.0); CALCIUM 7.5 mg/dL (8.4-10.2); CREATININE, serum 12.49 (0.66-1.25); PHOSPHOROUS 6.8 mg/dL (2.5-4.5)
[2020-07-27 09:22] LABS: BASO % 0.6 % (0.0-2.0); EOS # 0.1 (0.0-0.7); EOS % 2.6 % (0-4.0); GRAN # 3.8 (1.4-6.5); GRAN % 75.2 % (42.2-75.2); HEMOGLOBIN 10.8 g/dl (13.5-18.0); LYMPH # 0.8 (1.2-3.4); LYMPH % 15.8 % (20.0-51.0); MEAN CELL VOLUME 98 fl (80.0-100.0); MEAN CORPUSCULAR HEMOGLOBIN 32 pg (27.0-31.0); MEAN CORPUSCULAR HGB CONC 32 g/dl (33.0-37.0); MEAN PLATELET VOLUME 12.8 fl (7.4-10.4); MONO # 0.3 (0.1-0.6); MONO % 5.2 % (1.7-9.3); PLATELET COUNT 51 K/mm3 (130-400); REDCELL DISTRIBUTION WIDTH-CV 14.6 % (11.5-14.5)
[2020-07-27 09:24] LABS: HEMATOCRIT 33.4 % (42.0-52.0)
--- NOTE | 2020-07-27 11:00 | NUR ---
returned to room from dialysis, tolerated well, denies needs
--- NOTE | 2020-07-27 11:08 | NUR ---
Patient tolerated HD tx today, removed 1.4L of fluid. Nulecit IV ordered by Dr. Mcgee & to be administered on the floor by Nurse. Next tx scheduled for tomorrow Friday 07/28 by 0800 or after lunch.
--- NOTE | 2020-07-27 11:13 | NUR ---
SW met with the patient to discuss discharge plan. The patient lives in [place] with his , Gilma (ph#[phone]). He reports independence with ADLs and has a cane. The patient's PCP is Dr. Dona Chen at [facility] and he receives his medications from [facility]. in [place]. He reports no difficulties obtaining his meds. The patient's DPOA-HC is in EMR. It designates his . The patient plans to return home with his upon discharge. SW contacted and reviewed the d/c plan with the patient's , Gilma. Gilma reports no concerns with the patient returning back home with her upon discharge. SW to follow as needed.
--- NOTE | 2020-07-27 15:15 | NUR ---
TUMBLER PLATER in and assisting him with taking a shower
--- NOTE | 2020-07-27 18:45 | NUR ---
bedside shift report given to REY Billingsley
--- NOTE | 2020-07-27 21:00 | NUR ---
REPORT GIVEN BY REY JONAS. PATIENT SITTING UP IN HIS CHAIR. VSS. NO COMPLAINTS OF PAIN. PATIENT'S BLOOD SUGAR WAS 136. NO NOVOLOG REQUIRED. PATIENT AGREEABLE TO FLUID RESTRICTION. NO OTHER NEEDS AT THIS TIME. CALL LIGHT IN REACH.
[2020-07-28 00:11] VITALS: BP 136/46; PULSE 66; TEMP 97.6
[2020-07-28 03:37] VITALS: BP 128/44; PULSE 62; TEMP 98.2
--- NOTE | 2020-07-28 06:17 | NUR ---
Patient awake and watching tv this morning. Waiting to see when he will have dialysis today. No complaints of pain. Denies any other needs at this time. Will report off to day shift.
[2020-07-28 06:39] LABS: BASO % 0.4 % (0.0-2.0); EOS # 0.2 (0.0-0.7); EOS % 2.9 % (0-4.0); GRAN # 3.5 (1.4-6.5); GRAN % 68.8 % (42.2-75.2); HEMATOCRIT 34.1 % (42.0-52.0); HEMOGLOBIN 10.8 g/dl (13.5-18.0); LYMPH # 0.9 (1.2-3.4); LYMPH % 18.5 % (20.0-51.0); MEAN CELL VOLUME 101 fl (80.0-100.0); MEAN CORPUSCULAR HEMOGLOBIN 32 pg (27.0-31.0); MEAN CORPUSCULAR HGB CONC 32 g/dl (33.0-37.0); MEAN PLATELET VOLUME 13.5 fl (7.4-10.4); MONO # 0.5 (0.1-0.6); MONO % 9.2 % (1.7-9.3); PLATELET COUNT 55 K/mm3 (130-400); RED BLOOD COUNT 3.39 M/mm3 (4.20-5.60); REDCELL DISTRIBUTION WIDTH-CV 14.7 % (11.5-14.5)
[2020-07-28 06:48] LABS: ALBUMIN 3.6 gm/dL (3.5-5.0); CALCIUM 7.4 mg/dL (8.4-10.2); CREATININE, serum 10.36 (0.66-1.25); PHOSPHOROUS 7.3 mg/dL (2.5-4.5); POTASSIUM 5.1 mmol/L (3.4-5.0)
[2020-07-28 07:19] VITALS: BP 133/49; PULSE 62; TEMP 98.2
--- NOTE | 2020-07-28 08:01 | NUR ---
Patient up independent, He voided a very small amount. Walked halls with therapy. Awaiting dialysis. Patient denies pain. Minimal needs.
--- NOTE | 2020-07-28 09:18 | NUR ---
Patient in dialysiswith Stephanie.
[2020-07-28 11:52] VITALS: BP 135/60; PULSE 71; TEMP 98.2
[2020-07-28] MEDS ORDERED: LEVAQUIN 5500 MG/TA1 PO (13:43)
--- NOTE | 2020-07-28 14:08 | NUR ---
Patient ready for discharge. rounded. Orders obtained. Patient ready to go home. Int dc. Adriane his aware of plan of care. Home meds list reviewed with last dose taken. Follow up appt tmrw scheduled. Stressed importance of sticking with his renal/dialysis/fluid restricted diet. Patient ambulated out with all belongings.
--- NOTE | 2020-07-28 15:49 | NUR ---
The patient discharge home today, 07/28. He was ambulating independently in the halls. There are no additional needs.
== END 2020-07-28 14:11 | disposition home or self-care (01) | DRG 640 ==
LOC: SURG 17:46
PROVIDERS: ADMIT Internal Medicine Nephrology
PROC: 5A1D70Z Performance of Urinary Filtration, Intermittent, Less than 6 Hours Per Day (ICD-10-PCS; principal; 2020-07-27)
DX: E87.5 Hyperkalemia (principal); G93.41 Metabolic encephalopathy; N18.6 End stage renal disease; I12.0 Hypertensive chronic kidney disease with stage 5 chronic kidney disease or end stage renal disease; N39.0 Urinary tract infection, site not specified; N25.81 Secondary hyperparathyroidism of renal origin; E87.2 Acidosis; E11.22 Type 2 diabetes mellitus with diabetic chronic kidney disease; D63.1 Anemia in chronic kidney disease; D69.6 Thrombocytopenia, unspecified; E66.9 Obesity, unspecified; K72.90 Hepatic failure, unspecified without coma; Z20.828 Contact with and (suspected) exposure to other viral communicable diseases; E78.5 Hyperlipidemia, unspecified; Z90.49 Acquired absence of other specified parts of digestive tract; Z90.89 Acquired absence of other organs; Z95.0 Presence of cardiac pacemaker; Z95.1 Presence of aortocoronary bypass graft; Z85.038 Personal history of other malignant neoplasm of large intestine; Z79.82 Long term (current) use of aspirin; Z87.891 Personal history of nicotine dependence; Z85.51 Personal history of malignant neoplasm of bladder
CPT/HCPCS: J0692; J1644; J1815; J2916; J7030; Q5106

== ENCOUNTER 2020-11-24 11:04 | Outpatient (CLI) | payer MEDICARE ==
[~2020-11-24] VITALS: Ht 160 cm; Wt 82.3 kg
[2020-11-24 10:46] VITALS: BP 146/50; PULSE 61; TEMP 97.4
[~2020-11-24 11:04] MED LIST changes: +KENALOG DENTAL P5 GM DT; +LEVAQUIN 5500 MG/TA1 PO; +NOVOLIN N100 U/ML SQ
[2020-11-24 13:05] VITALS: BP 170/68; PULSE 65
--- NOTE | 2020-11-24 13:05 | NUR ---
Report from Barbi LE. Transferred by bed from Cargo Tank Mechanic. Fistula site with bandaid CD&I. VSS.
[2020-11-24 13:20] VITALS: BP 172/64; PULSE 62
[2020-11-24 13:35] VITALS: BP 170/62; PULSE 60
[2020-11-24 13:50] VITALS: BP 160/62; PULSE 66
[2020-11-24 14:00] VITALS: BP 162/64; PULSE 63
--- NOTE | 2020-11-24 14:00 | NUR ---
INT discontinued intact. Discharge instructions given. Transferred to private car by massiel
== END 2020-11-24 14:00 | disposition home or self-care (01) ==
LOC: COL.CAR 11:04
DX: T82.898A Other specified complication of vascular prosthetic devices, implants and grafts, initial encounter (principal); E11.22 Type 2 diabetes mellitus with diabetic chronic kidney disease; N18.6 End stage renal disease; Z99.2 Dependence on renal dialysis; Z85.038 Personal history of other malignant neoplasm of large intestine; Z90.89 Acquired absence of other organs; Z79.899 Other long term (current) drug therapy; Z79.890 Hormone replacement therapy; Z79.4 Long term (current) use of insulin; Z79.01 Long term (current) use of anticoagulants; Z87.891 Personal history of nicotine dependence
CPT/HCPCS: J1644; Q9967

== ENCOUNTER 2021-05-05 06:39 | Day surgery (SDC) | payer MEDICARE ==
[~2021-05-05] VITALS: Ht 158.8 cm; Wt 80.9 kg
[2021-05-05 07:04] VITALS: BP 151/59; PULSE 76; TEMP 98.7
[2021-05-05 07:35] LABS: BASO % 0.5 % (0.0-2.0); EOS # 0.3 K/mm3 (0.0-0.7); GRAN # 4.3 K/mm3 (1.4-6.5); GRAN % 68.5 % (42.2-75.2); HEMOGLOBIN 10.1 g/dl (13.5-18.0); LYMPH # 1.2 K/mm3 (1.2-3.4); LYMPH % 19.1 % (20.0-51.0); MEAN CELL VOLUME 101 fl (80.0-100.0); MEAN CORPUSCULAR HEMOGLOBIN 33 pg (27.0-31.0); MEAN CORPUSCULAR HGB CONC 33 g/dl (33.0-37.0); MEAN PLATELET VOLUME 11.7 fl (7.4-10.4); MONO # 0.5 K/mm3 (0.1-0.6); MONO % 7.7 % (1.7-9.3); PLATELET COUNT 55 K/mm3 (130-400); RED BLOOD COUNT 3.07 M/mm3 (4.20-5.60); REDCELL DISTRIBUTION WIDTH-CV 13.7 % (11.5-14.5)
[2021-05-05 07:39] LABS: HEMATOCRIT 31.1 % (42.0-52.0)
[2021-05-05] MEDS ORDERED: NORVASC 10MG10 MG PO (07:43)
[2021-05-05 07:48] LABS: INR 1.3 (0.8-3.0); PROTHROMBIN TIME 14.3 SECONDS (9.7-12.8)
[2021-05-05] MEDS ORDERED: TOPROL XL100 MG PO (07:49)
[2021-05-05] MEDS ORDERED: COUMADIN 3MG3 MG/TAB PO (07:52)
[2021-05-05] MEDS ORDERED: CIALIS10 MG PO (07:53)
[2021-05-05] MEDS ORDERED: INSULIN N (N100 U/ML SQ (07:57)
[2021-05-05] MEDS ORDERED: NOVOLIN R100 U/ML SQ (07:57)
[2021-05-05 08:25] LABS: CALCIUM 7.8 mg/dL (8.4-10.2); CREATININE, serum 7.62 mg/dL (0.72-1.25); POTASSIUM 4.5 mmol/L (3.5-4.5)
[2021-05-05 10:28] VITALS: BP 130/43; PULSE 65
--- NOTE | 2021-05-05 10:28 | NUR ---
Patient returns to room 8 per cart from surgery accompanied by Girma MERINO and Jamshid RN. Patient is awake and alert. IV fluids infusing #20g right foot. Siderails up x2. Left arm in sling and bulky mirza wrap dressing clean and dry. States that his left arm is numb and denies any pain.
[2021-05-05 10:43] VITALS: BP 130/54; PULSE 59
--- NOTE | 2021-05-05 10:43 | NUR ---
Drinking water. Spouse at side. IV to INT. Continues to deny pain or nausea.
[2021-05-05 10:58] VITALS: BP 159/66; PULSE 59
--- NOTE | 2021-05-05 10:58 | NUR ---
INT discontinued and site is free of redness. Sitting up drinking water. Offered snack and refuses. States he will eat on the way home with spouse.
--- NOTE | 2021-05-05 11:28 | NUR ---
Patient is dressed and ready for discharge. Noted skin on the right forearm. States that he bumped it on the siderail. Site is approximately 1cm in diameter. No bleeding noted. States skin very thin and bruises easily. Dismissal instructions signed and voices understanding of these. Provided office number for questions and concerns. Patient dismissed to home driven by spouse and taken to the front door per wheelchair and asisted into vehicle with dismissal instructions in hand.
== END 2021-05-05 11:28 | disposition home or self-care (01) ==
LOC: SDCO 06:39
PROVIDERS: Nurse Anesthetist, Certified Registered; Orthopaedic Surgery
DX: G56.02 Carpal tunnel syndrome, left upper limb (principal); G56.22 Lesion of ulnar nerve, left upper limb; E78.5 Hyperlipidemia, unspecified; E11.22 Type 2 diabetes mellitus with diabetic chronic kidney disease; N18.6 End stage renal disease; I13.2 Hypertensive heart and chronic kidney disease with heart failure and with stage 5 chronic kidney disease, or end stage renal disease; I25.10 Atherosclerotic heart disease of native coronary artery without angina pectoris; I25.2 Old myocardial infarction; J44.9 Chronic obstructive pulmonary disease, unspecified; G47.33 Obstructive sleep apnea (adult) (pediatric); K21.9 Gastro-esophageal reflux disease without esophagitis; K74.60 Unspecified cirrhosis of liver; G89.29 Other chronic pain; E11.42 Type 2 diabetes mellitus with diabetic polyneuropathy; D64.9 Anemia, unspecified; G25.81 Restless legs syndrome; M19.041 Primary osteoarthritis, right hand; M54.9 Dorsalgia, unspecified; M19.042 Primary osteoarthritis, left hand; Z79.01 Long term (current) use of anticoagulants; Z99.2 Dependence on renal dialysis; Z79.890 Hormone replacement therapy; Z79.899 Other long term (current) drug therapy; Z87.891 Personal history of nicotine dependence; Z99.89 Dependence on other enabling machines and devices
CPT/HCPCS: J0690; J2250; J2704; J2795

== ENCOUNTER 2021-06-10 05:28 | Day surgery (SDC) | payer MEDICARE ==
[~2021-06-10] VITALS: Ht 160 cm; Wt 83.1 kg
[~2021-06-10 05:28] MED LIST changes: +CIALIS10 MG PO; +COUMADIN 3MG3 MG/TAB PO; +INSULIN N (N100 U/ML SQ; +NORVASC 10MG10 MG PO; +PHOS LO PO
[2021-06-10 05:57] VITALS: BP 142/57; PULSE 73; TEMP 97.6
[2021-06-10 06:15] LABS: BASO % 0.6 % (0.0-2.0); EOS # 0.3 K/mm3 (0.0-0.7); EOS % 4.6 % (0.0-4.0); GRAN # 4.4 K/mm3 (1.4-6.5); GRAN % 67.6 % (42.2-75.2); HEMOGLOBIN 11.4 g/dl (13.5-18.0); LYMPH # 1.4 K/mm3 (1.2-3.4); LYMPH % 21.4 % (20.0-51.0); MEAN CELL VOLUME 104 fl (80.0-100.0); MEAN CORPUSCULAR HEMOGLOBIN 32 pg (27-31); MEAN CORPUSCULAR HGB CONC 31 g/dl (33.0-37.0); MEAN PLATELET VOLUME 12.1 fl (7.4-10.4); MONO # 0.4 K/mm3 (0.1-0.6); MONO % 5.5 % (1.7-9.3); PLATELET COUNT 53 K/mm3 (130-400); RED BLOOD COUNT 3.54 M/mm3 (4.20-5.60); REDCELL DISTRIBUTION WIDTH-CV 14.5 % (11.5-14.5)
--- NOTE | 2021-06-10 06:15 | NUR ---
The patient ambualted back to [facility] indpendently using a steady gait and appeared to tolerate the activity well. Vital signs obtained. Consent signed. 20G IV started in left hand with one stick, NS infusing without difficulty. Blood obtained from IV start for labs as ordered. Heart Reg. Lungs clear. Bowel sounds audible. Call light is within reach. Warm blanket provided. brought back to be at his bedside. The patient denies any further needs. Will continue to monitor the patient.
[2021-06-10 06:17] LABS: HEMATOCRIT 36.7 % (42.0-52.0)
[2021-06-10 06:23] LABS: INR 1.2 (0.8-3.0); PROTHROMBIN TIME 13.6 SECONDS (9.7-12.8)
[2021-06-10] MEDS ORDERED: LIPITOR 10MG10 MG PO (06:24)
[2021-06-10] MEDS ORDERED: VITAMINE200 PO (06:26)
[2021-06-10] MEDS ORDERED: PHOS LO PO (06:28)
[2021-06-10] MEDS ORDERED: LASIX 40MG TABL40 MG PO (06:32)
[2021-06-10 06:34] LABS: CALCIUM 7.7 mg/dL (8.4-10.2); CREATININE, serum 12.66 mg/dL (0.72-1.25)
[2021-06-10 06:51] LABS: POTASSIUM 5.8 mmol/L (3.5-4.5)
--- NOTE | 2021-06-10 06:59 | NUR ---
Odalys Garcia CRNA was notified of the patient's critical lab values and verbalized understanding and is going to come review past lab levels with the nurse.
--- NOTE | 2021-06-10 07:15 | NUR ---
Dr. Jimenez and Odalys Garcia CRNA are discussing the patient's resulted labs and how to proceed. The decision was made to cancel the patient's surgery today due to his critical lab values.
--- NOTE | 2021-06-10 07:25 | NUR ---
Dr. Jimenez is at the patient's bedside speaking with the patient and his about the need for cancellingn surgery today. He informed them that someone from his office would contact them today or Sunday to get the surgery rescheduled. He also told the patient that the surgery would need to be scheduled the day following a dialysis treatment to ensure that the labs are within range. The patient and his verbalized understanding. The patient's IV to his left hand was removed and a pressure dressing was applied to the site. The nurse instructed the patient to get dressed and notify the staff when he is ready to be escorted out.
--- NOTE | 2021-06-10 07:35 | NUR ---
The patient ambulated out to a private vehicle using a steady gait and appeared to tolerate the activity well. The patient's belongings were sent with him. The patient's is present to drive him home.
== END 2021-06-10 07:40 | disposition home or self-care (01) ==
LOC: SDCO 05:28
PROVIDERS: Registered Nurse
DX: G56.01 Carpal tunnel syndrome, right upper limb (principal); G56.21 Lesion of ulnar nerve, right upper limb; Z53.8 Procedure and treatment not carried out for other reasons; N18.6 End stage renal disease; M10.9 Gout, unspecified; E11.22 Type 2 diabetes mellitus with diabetic chronic kidney disease; I13.2 Hypertensive heart and chronic kidney disease with heart failure and with stage 5 chronic kidney disease, or end stage renal disease; I50.9 Heart failure, unspecified; M19.041 Primary osteoarthritis, right hand; M19.042 Primary osteoarthritis, left hand; E07.9 Disorder of thyroid, unspecified; E78.5 Hyperlipidemia, unspecified; G47.33 Obstructive sleep apnea (adult) (pediatric); K21.9 Gastro-esophageal reflux disease without esophagitis; G89.29 Other chronic pain; M54.9 Dorsalgia, unspecified; Z86.73 Personal history of transient ischemic attack (TIA), and cerebral infarction without residual deficits; Z87.891 Personal history of nicotine dependence; Z99.89 Dependence on other enabling machines and devices; Z79.890 Hormone replacement therapy; Z85.038 Personal history of other malignant neoplasm of large intestine; Z99.2 Dependence on renal dialysis; Z79.01 Long term (current) use of anticoagulants; Z79.4 Long term (current) use of insulin; Z85.51 Personal history of malignant neoplasm of bladder
CPT/HCPCS: J2250; J2795; J3010; J7030

== ENCOUNTER 2021-06-30 05:28 | Day surgery (SDC) | payer MEDICARE ==
[~2021-06-30] VITALS: Ht 160 cm; Wt 82.3 kg
[~2021-06-30 05:28] MED LIST changes: +LIPITOR 10MG10 MG PO; +VITAMINE200 PO
--- NOTE | 2021-06-30 06:30 | NUR ---
Notified Francisco Casey CRNA, of blood sugar of 81.
[2021-06-30 07:14] VITALS: BP 153/61; PULSE 76; TEMP 97.5
[2021-06-30 07:16] LABS: CALCIUM 7.8 mg/dL (8.4-10.2); CREATININE, serum 7.37 mg/dL (0.72-1.25); POTASSIUM 4.6 mmol/L (3.5-4.5)
[2021-06-30 07:41] LABS: INR 1.3 (0.8-3.0); PROTHROMBIN TIME 14.2 SECONDS (9.7-12.8)
[2021-06-30 09:37] VITALS: BP 141/53; PULSE 65; TEMP 97.5
--- NOTE | 2021-06-30 09:37 | NUR ---
Patient arrived back into bay 8 from OR. Patient drowsy but arousable to voice. Report recieved from REY Kerr and ANGELIQUE Singh. Patient reports operative extremity is numbness, cap refill <3 sec. Patient's nando in from Surgical waiting room. Dr. Jimenez spoke with patient and patient's .
[2021-06-30 09:52] VITALS: BP 134/43; PULSE 62
--- NOTE | 2021-06-30 09:55 | NUR ---
Patient alert and awake, requesting water and chocolate pudding. at bedside. Circulation intact. Patient reports numbness on operative extremity. Tolerated food and drink well. No complaint of pain or nausea.
[2021-06-30 10:07] VITALS: BP 139/56; PULSE 54
--- NOTE | 2021-06-30 10:15 | NUR ---
Went through discharge instructions with patient and . Questions answered. left to get care started. Assisted patient in getting dressed. Patient escorted to patient entrance via wheelchair and left in the care of his .
== END 2021-06-30 10:25 | disposition home or self-care (01) ==
LOC: SDCO 05:28
PROVIDERS: Orthopaedic Surgery
DX: G56.01 Carpal tunnel syndrome, right upper limb (principal); G56.21 Lesion of ulnar nerve, right upper limb; E78.5 Hyperlipidemia, unspecified; I25.10 Atherosclerotic heart disease of native coronary artery without angina pectoris; I13.2 Hypertensive heart and chronic kidney disease with heart failure and with stage 5 chronic kidney disease, or end stage renal disease; N18.6 End stage renal disease; I50.9 Heart failure, unspecified; E11.22 Type 2 diabetes mellitus with diabetic chronic kidney disease; E11.42 Type 2 diabetes mellitus with diabetic polyneuropathy; E07.9 Disorder of thyroid, unspecified; I25.2 Old myocardial infarction; D64.9 Anemia, unspecified; J44.9 Chronic obstructive pulmonary disease, unspecified; G47.33 Obstructive sleep apnea (adult) (pediatric); M10.9 Gout, unspecified; M19.90 Unspecified osteoarthritis, unspecified site; Z79.899 Other long term (current) drug therapy; Z95.1 Presence of aortocoronary bypass graft; Z99.89 Dependence on other enabling machines and devices; Z99.2 Dependence on renal dialysis; Z85.038 Personal history of other malignant neoplasm of large intestine; Z85.51 Personal history of malignant neoplasm of bladder; Z87.891 Personal history of nicotine dependence; Z79.890 Hormone replacement therapy; Z79.4 Long term (current) use of insulin
CPT/HCPCS: J0690; J2250; J2704; J3010; J7030

== ENCOUNTER 2021-10-22 19:40 | Observation (INO) | payer MEDICARE ==
[~2021-10-22] VITALS: Ht 160 cm; Wt 77.6 kg
[2021-10-22 20:47] LABS: BASO % 0.5 % (0.0-2.0); EOS # 0.2 K/mm3 (0.0-0.7); EOS % 1.8 % (0.0-4.0); GRAN # 6.7 K/mm3 (1.4-6.5); GRAN % 75.8 % (42.2-75.2); HEMOGLOBIN 10.6 g/dl (13.5-18.0); LYMPH # 1.1 K/mm3 (1.2-3.4); LYMPH % 12.2 % (20.0-51.0); MEAN CELL VOLUME 97 fl (80.0-100.0); MEAN CORPUSCULAR HEMOGLOBIN 31 pg (27-31); MEAN CORPUSCULAR HGB CONC 32 g/dl (33.0-37.0); MEAN PLATELET VOLUME 12.2 fl (7.4-10.4); MONO # 0.8 K/mm3 (0.1-0.6); MONO % 9.5 % (1.7-9.3); PLATELET COUNT 81 K/mm3 (130-400); RED BLOOD COUNT 3.41 M/mm3 (4.20-5.60); REDCELL DISTRIBUTION WIDTH-CV 13.4 % (11.5-14.5)
[2021-10-22 20:49] LABS: HEMATOCRIT 32.9 % (42.0-52.0)
[2021-10-22 21:02] LABS: ALBUMIN 2.8 gm/dL (3.4-4.8); BILIRUBIN,TOTAL 1.3 mg/dL (0.2-1.2); CALCIUM 8.1 mg/dL (8.4-10.2); CREATININE, serum 6.57 mg/dL (0.72-1.25); POTASSIUM 3.6 mmol/L (3.5-4.5); TOTAL PROTEIN 7.5 gm/dL (6.2-8.1)
[2021-10-22 21:12] LABS: TROPONIN-I 0.518 ng/mL (0.00-0.033)
--- NOTE | 2021-10-22 23:57 | NUR ---
PATIENT UP TO ROOM 353. ALERT AND ORIENTED. VSS. MED RX AND ADMISSION ASSESSMENT COMPLETED. PROVIDED WITH SANDWICH BOX PER PATIENTS REQUEST. CHANGED INTO PAJAMA PANTS AND NON SLIP SOCKS. L HAND IV PATENT AND FLUSHES EASILY. R UPPER ARM FISTULA WITH GOOD BRUIT AND THRILL NOTED. TELE IN PLACE. PATIENT REMAINS ON ROOM AIR AT THIS TIME. GENERALIZED BRUISING NOTED THROUGHOUT. CURRENTLY SITTING UP EATING, CALL LIGHT IN REACH.
[2021-10-23] VITALS (7 sets, daily range): BP systolic 136–180; BP diastolic 45–61; PULSE 72–88; TEMP 98–99.4
--- NOTE | 2021-10-23 08:30 | NUR ---
Patient called requesting his morning medications. Currently non ordered and current med list in med rec is not up to date. is to bring in a new list this morning. Will wait to call Dr Mcgee until current medication list.
--- NOTE | 2021-10-23 11:01 | NUR ---
Dr Mcgee at bedside.
[2021-10-23] MEDS ORDERED: AURYXIA1 GM PO (11:12)
[2021-10-23] MEDS ORDERED: PROTONIX 40MG T40 MG PO (11:21)
[2021-10-23] MEDS ORDERED: TYLENOL 325MG325 MG PO (11:22)
[2021-10-23] MEDS ORDERED: VITAMIN E1000 U/CAP PO (11:23)
--- NOTE | 2021-10-23 13:10 | NUR ---
Dr Wilde notified of cards consult.
--- NOTE | 2021-10-23 14:09 | NUR ---
SW met with patient to complete intake. Patient states that he lives in [place] with is Gilma [phone] or [phone]. Patient states that he does utilize any DME and is independent with ADL's. PCP is Dr. Lerner, and pharmacy is [facility] in [place]. DPOA/HC is and Stephanie Hernandez [phone] and Bonnie Daugherty [phone]. Patient states that his plan is to return to his home upon DC. Patient did not have any questions or concerns at this time. SW will continue to follow. DC plan: home
--- NOTE | 2021-10-23 16:32 | NUR ---
Patient had an uneventful day. Denied pain/nausea/shortness of breath. Continues to be on room air. VS remain stable-slightly elevated blood pressure. Denies current needs. Call light in reach. Will monitor.
--- NOTE | 2021-10-23 19:07 | NUR ---
RECEIVED CHANGE OF SHIFT REPORT FROM DAY SHIFT RN.
--- NOTE | 2021-10-23 23:22 | NUR ---
PATIENT HAS BEEN UP IN ROOM WITH NO REPORTED PROBLEMS OR CONCERNS. CALL LIGHT WITHIN REACH. DENIED ANY NEEDS OR CONCERNS SO FAR THIS NIGHT.
[2021-10-24 04:22] VITALS: BP 130/51; PULSE 68; TEMP 98.8
[2021-10-24 06:03] LABS: BASO % 0.2 % (0.0-2.0); EOS # 0.2 K/mm3 (0.0-0.7); EOS % 1.2 % (0.0-4.0); GRAN % 75.1 % (42.2-75.2); HEMOGLOBIN 10.9 g/dl (13.5-18.0); LYMPH # 1.9 K/mm3 (1.2-3.4); LYMPH % 14.1 % (20.0-51.0); MEAN CELL VOLUME 99 fl (80.0-100.0); MEAN CORPUSCULAR HEMOGLOBIN 31 pg (27-31); MEAN CORPUSCULAR HGB CONC 32 g/dl (33.0-37.0); MEAN PLATELET VOLUME 12.5 fl (7.4-10.4); MONO # 1.2 K/mm3 (0.1-0.6); MONO % 8.9 % (1.7-9.3); PLATELET COUNT 91 K/mm3 (130-400); RED BLOOD COUNT 3.47 M/mm3 (4.20-5.60); REDCELL DISTRIBUTION WIDTH-CV 13.4 % (11.5-14.5)
[2021-10-24 06:08] LABS: INR 1.4 (0.8-3.0); PROTHROMBIN TIME 16.6 SECONDS (9.7-12.8)
[2021-10-24 06:09] LABS: HEMATOCRIT 34.2 % (42.0-52.0)
[2021-10-24 06:16] LABS: ALBUMIN 2.7 gm/dL (3.4-4.8); CALCIUM 7.8 mg/dL (8.4-10.2); CREATININE, serum 9.9 mg/dL (0.72-1.25); PHOSPHOROUS 5.2 mg/dL (2.3-4.7); POTASSIUM 4.6 mmol/L (3.5-4.5)
--- NOTE | 2021-10-24 06:45 | NUR ---
CHANGE OF SHIFT REPORT GIVEN TO DAY SHIFT RNNELY.
[2021-10-24 07:45] VITALS: BP 131/53; PULSE 64; TEMP 97.5
--- NOTE | 2021-10-24 08:04 | NUR ---
Pt assessment complete. Pt is sitting up in the recliner upon entry, he is A/Ox4. His breathing is even and unlabored on RA. Pt denies any SOB. Reports pain same as before to center/Left upper chest. Denies need for intervention with this. Denies N/V. Would like to shower prior to dialysis. POC discussed with patient who verbalizes understanding. Call light within reach.
[2021-10-24 12:45] VITALS: BP 96/41; PULSE 80
--- NOTE | 2021-10-24 12:49 | NUR ---
PATIENT TOLERATED HD TX WITH 3L OF FLUID REMOVED, ATTEMPTED INCREASED FLUID REMOVAL & PATIENT BECAME HYPOTENSIVE. PATIENT RESTLESS DURING TX. NEXT PLANNED HD TX TOMORROW, Sunday10/25/21 @ 0830.
--- NOTE | 2021-10-24 13:03 | NUR ---
Top Inventory Control Executive collaborated with RN who advised patient is independent in his room.
[2021-10-24 16:10] VITALS: BP 109/49; PULSE 80; TEMP 98.1
[2021-10-24 20:03] VITALS: BP 134/51; PULSE 82; TEMP 98.1
--- NOTE | 2021-10-24 22:46 | NUR ---
PATIENT ALERT AND ORIENTED. C/O HEADACHE, PRN TYLENOL GIVEN. MEDS PER EMAR. L HAND IV PATENT AND FLUSHED. DENIES OTHER NEEDS. CURRENTLY SITTING AT SIDE OF BEDDING EATING SNACK.
[2021-10-24 23:09] VITALS: BP 130/43; PULSE 82; TEMP 98.1
[2021-10-25 04:10] VITALS: BP 128/42; PULSE 64; TEMP 97.8
[2021-10-25 06:05] LABS: BASO % 0.3 % (0.0-2.0); EOS # 0.2 K/mm3 (0.0-0.7); EOS % 1.3 % (0.0-4.0); GRAN # 9.9 K/mm3 (1.4-6.5); GRAN % 76.2 % (42.2-75.2); HEMOGLOBIN 11.4 g/dl (13.5-18.0); LYMPH # 1.7 K/mm3 (1.2-3.4); LYMPH % 12.8 % (20.0-51.0); MEAN CELL VOLUME 99 fl (80.0-100.0); MEAN CORPUSCULAR HEMOGLOBIN 32 pg (27-31); MEAN CORPUSCULAR HGB CONC 32 g/dl (33.0-37.0); MEAN PLATELET VOLUME 12.7 fl (7.4-10.4); MONO # 1.2 K/mm3 (0.1-0.6); PLATELET COUNT 95 K/mm3 (130-400); RED BLOOD COUNT 3.61 M/mm3 (4.20-5.60); REDCELL DISTRIBUTION WIDTH-CV 13.5 % (11.5-14.5)
[2021-10-25 06:08] LABS: HEMATOCRIT 35.8 % (42.0-52.0)
[2021-10-25 06:24] LABS: ALBUMIN 2.8 gm/dL (3.4-4.8); CREATININE, serum 7.71 mg/dL (0.72-1.25); PHOSPHOROUS 5.7 mg/dL (2.3-4.7); POTASSIUM 4.5 mmol/L (3.5-4.5)
--- NOTE | 2021-10-25 06:45 | NUR ---
Report received, assumed care for day shift.
[2021-10-25 07:45] VITALS: BP 119/50; PULSE 61; TEMP 98.4
--- NOTE | 2021-10-25 07:51 | NUR ---
Patient sitting up in chair eating breakfast. Assessment complete. A&Ox3. Denies pain/nausea/shortness of breath. VS remain stable. K pad at bedside for stiff neck but states headache is better. AM insulin given. Discussed call from Stephanie at dialysis and that there would be no dialysis today. Patient asking if he can go home. Plan of care discussed for this shift to include meds/glucose monitoring/calling for questions/concerns. Verbalizes understanding. Call light in reach. Will monitor.
[2021-10-25 10:59] VITALS: BP 125/50; PULSE 63; TEMP 97.7
[2021-10-25] MEDS ORDERED: LEVAQUIN 5500 MG/TA1 PO ×2 (11:03→11:08)
[2021-10-25] MEDS ORDERED: XANAX .25M0.25 MG/TA PO ×3 (11:05→12:35)
--- NOTE | 2021-10-25 13:03 | NUR ---
Discharge instructions given both verbal and handwritten. Discussed f/u appt, s/s of infection, home medications and new prescriptions. Verbalizes understanding/denies questions or concerns. INT to left hand DCd-cath intact. Waiting on ride from family-instructed to call when arrives for wheelchair ride down. Verbalizes understanding. Call light in reach. Will monitor.
--- NOTE | 2021-10-25 13:07 | NUR ---
County Engineer and Title Insurance Sales Representative met with patient to present and review COMER form. Patient up independently in his room and will be discharged home today. Patient verbalized understanding that he was downgraded to observation status and provided his signature on COMER form. SW placed form in chart and gave copy to patient.
--- NOTE | 2021-10-25 13:07 | NUR ---
First visit from the route specialist. No needs right now.
--- NOTE | 2021-10-25 13:16 | NUR ---
Escorted off floor via wheelchair-escorted by spouse and JULIO C Jeong in stable condition post discharge instructions.
[2021-11-18] MEDS ORDERED: MONUROL 3 GM3 G/PKT PO (18:52)
== END 2021-10-25 13:18 | disposition home or self-care (01) ==
LOC: COL.ER 19:40 → MEDICAL 21:37
PROVIDERS: Emergency Medicine; ADMIT Internal Medicine Nephrology
DX: I16.0 Hypertensive urgency (principal); R07.9 Chest pain, unspecified; R05.9 Cough, unspecified; E11.22 Type 2 diabetes mellitus with diabetic chronic kidney disease; I12.0 Hypertensive chronic kidney disease with stage 5 chronic kidney disease or end stage renal disease; N18.6 End stage renal disease; Z99.2 Dependence on renal dialysis; D63.1 Anemia in chronic kidney disease; K74.60 Unspecified cirrhosis of liver; I08.0 Rheumatic disorders of both mitral and aortic valves; Z95.1 Presence of aortocoronary bypass graft; E66.9 Obesity, unspecified; Z90.49 Acquired absence of other specified parts of digestive tract; Z79.01 Long term (current) use of anticoagulants; Z79.4 Long term (current) use of insulin; Z95.0 Presence of cardiac pacemaker; Z95.2 Presence of prosthetic heart valve; Z87.891 Personal history of nicotine dependence; Z85.038 Personal history of other malignant neoplasm of large intestine; Z20.822 Contact with and (suspected) exposure to COVID-19
CPT/HCPCS: G0378; J1644; J1756; J1815; J1956; J7030

== ENCOUNTER 2021-12-06 10:09 | Outpatient (CLI) | payer MEDICARE ==
[~2021-12-06] VITALS: Ht 160.1 cm; Wt 75.1 kg
[~2021-12-06 10:09] MED LIST changes: +MONUROL 3 GM3 G/PKT PO; +OMNICEF 300MG300 MG PO; +TYLENOL 325MG325 MG PO; +VITAMIN E1000 U/CAP PO; +XANAX .25M0.25 MG/TA PO
[2021-12-06 11:35] VITALS: BP 136/91; PULSE 64; TEMP 97.7
[2021-12-06] MEDS ORDERED: NORVASC 10MG10 MG PO (11:51)
[2021-12-06] MEDS ORDERED: APRESOLINE 25MG25 MG PO (11:52)
[2021-12-06 13:54] VITALS: BP 150/62; PULSE 75
[2021-12-06 14:00] VITALS: BP 157/68; PULSE 75
[2021-12-06 14:15] VITALS: BP 163/76; PULSE 77
[2021-12-06 14:30] VITALS: BP 172/75; PULSE 76
[2021-12-06 14:39] VITALS: BP 162/77; PULSE 77
--- NOTE | 2021-12-06 14:40 | NUR ---
DC instructions reviewed with pt and . Both express understanding. Pt has tolerated pudding and soda without issue. Bandaid over AV fistula puncture site remains clean, dry and intact with strong bruit and thrill present. INT DC'd with catheter intact. Pt has steady gait to restroom. He is assisted out to 's car by wheelchair with belongings.
== END 2021-12-06 14:40 | disposition home or self-care (01) ==
LOC: COL.CAR 10:09
DX: T82.858A Stenosis of other vascular prosthetic devices, implants and grafts, initial encounter (principal); E11.22 Type 2 diabetes mellitus with diabetic chronic kidney disease; I12.0 Hypertensive chronic kidney disease with stage 5 chronic kidney disease or end stage renal disease; N18.6 End stage renal disease; Z99.2 Dependence on renal dialysis
CPT/HCPCS: C1769; J1644; J2250; J3010

== ENCOUNTER 2022-02-06 21:15 | Emergency (ER) | payer MEDICARE ==
[~2022-02-06] VITALS: Ht 162.6 cm; Wt 90.9 kg
[~2022-02-06 21:15] MED LIST changes: +PERCOCET 325 MG1 TA2 PO
[2022-02-06 22:24] LABS: BASO % 0.4 % (0.0-2.0); EOS % 0.2 % (0.0-4.0); GRAN # 7.1 K/mm3 (1.4-6.5); GRAN % 82.8 % (42.2-75.2); HEMOGLOBIN 10.5 g/dl (13.5-18.0); LYMPH # 0.7 K/mm3 (1.2-3.4); LYMPH % 8.2 % (20.0-51.0); MEAN CELL VOLUME 101 fl (80.0-100.0); MEAN CORPUSCULAR HEMOGLOBIN 31 pg (27-31); MEAN CORPUSCULAR HGB CONC 31 g/dl (33.0-37.0); MEAN PLATELET VOLUME 11.2 fl (7.4-10.4); MONO # 0.7 K/mm3 (0.1-0.6); MONO % 7.9 % (1.7-9.3); PLATELET COUNT 84 K/mm3 (130-400); RED BLOOD COUNT 3.39 M/mm3 (4.20-5.60); REDCELL DISTRIBUTION WIDTH-CV 15.6 % (11.5-14.5)
[2022-02-06 22:26] LABS: HEMATOCRIT 34.2 % (42.0-52.0)
[2022-02-06 22:40] LABS: ALBUMIN 1.7 gm/dL (3.4-4.8); CALCIUM 8.3 mg/dL (8.4-10.2); CREATININE, serum 4.39 mg/dL (0.72-1.25); MAGNESIUM 1.8 mg/dL (1.6-2.6); PHOSPHOROUS 3.1 mg/dL (2.3-4.7); POTASSIUM 4.3 mmol/L (3.5-4.5)
[2022-02-07 05:15] VITALS: TEMP 98.3
[2022-02-07 06:36] VITALS: BP 129/64
[2022-02-07 07:34] VITALS: PULSE 68
== END 2022-02-07 07:45 | disposition short-term general hospital (02) ==
LOC: COL.ER 21:15
PROVIDERS: Emergency Medicine
DX: A41.9 Sepsis, unspecified organism (principal); L03.114 Cellulitis of left upper limb; E11.22 Type 2 diabetes mellitus with diabetic chronic kidney disease; N18.6 End stage renal disease; Z99.2 Dependence on renal dialysis; Z88.0 Allergy status to penicillin; Z20.822 Contact with and (suspected) exposure to COVID-19
CPT/HCPCS: J1170; J2185; J3010; J3370; J7040; J7120